=== PATIENT | female | born 1960 | race Caucasian/White ===

== ENCOUNTER → 2019-08-22 07:33 | Outpatient (CLI) | payer BC, SELFPAY ==
--- NOTE | ~2019-08-22 | MR_ITS ---
EXAMINATION: MR lumbar spine wo con DATE: 08/22/2019 08:12 INDICATION: Chronic low back pain. TECHNIQUE: Magnetic resonance imaging (MRI) of the lumbar spine was performed without intravenous con trast. Sequences included sagittal T2-weighted FSE, sagittal T2-weighted FS FSE, sagittal T1-weighted FSE, and axial T2-weighted FSE. COMPARISON: Lumbar spine radiographs 09/12/2016, CT abdomen and pelvis 06/10/2014 FINDINGS: There is 4 degrees levocurvature of lumbar spine. Vertebral body heights are normal. There is mildly decreased disc height at L3-L4 and moderately decreased disc height at L4-L5 and L5-S1. The distal spinal cord signal intensity is normal. The conus medullaris is at L1-L2. Again seen are noy pelvic cysts in the kidneys. The following disc levels are specifically discussed: L1-L2: The disc does not extend beyond the endplate margin. There is mild bilateral facet joint osteo arthritis. There is no neural foraminal stenosis. There is no central canal stenosis. L2-L3: The disc is bulging. There is mild bilateral facet joint osteoarthritis. There is mild left ne ural foraminal stenosis. There is mild central canal stenosis. L3-L4: The disc is bulging. There is moderate left facet joint osteoarthritis. There is mild bilatera l neural foraminal stenosis. There is mild central canal stenosis. L4-L5: The disc is bulging. There is moderate right and mild left facet joint osteoarthritis. There i s moderate right and mild left neural foraminal stenosis. There is mild central canal stenosis. L5-S1: The disc is bulging. There is mild right and severe left facet joint osteoarthritis. There is mild left neural foraminal stenosis. There is no central canal stenosis. IMPRESSION: 1. Moderate lumbar spondylosis. Reviewed, dictated and finalized at location A. TING TABLE HAND
== END ==
PROVIDERS: PCP Family Medicine; Visit Provider Nurse Practitioner Gerontology
DX: M47.896 Other spondylosis, lumbar region (principal)
CPT/HCPCS: 72148

== ENCOUNTER 2019-12-25 14:11 | Emergency (ER) | payer BC, SELFPAY ==
--- NOTE | ~2019-12-25 | XR_ITS ---
EXAMINATION: XR foot LT min 3V DATE: 12/25/2019 15:01 INDICATION: Bruising post injury to the left fourth and fifth toes TECHNIQUE: Dorsoplantar, two oblique and lateral views of the left foot and cone-down lateral view o f the left fifth toe were obtained. COMPARISON: None. FINDINGS: 1 mm plantar displacement and 30 degree dorsal/lateral angulation and an oblique extra-articular frac ture at the proximal diaphysis of the left fifth proximal phalanx. No other fractures identified. Mil d hallux valgus with bunion at the medial head of the first metatarsal. Mild osteoarthritis at the fi rst metatarsophalangeal joint. Remaining joint spaces appear relatively preserved. IMPRESSION: 1. Minimally displaced, moderate angulated extra articular fracture at the left fifth proximal phalan x. Reviewed, dictated and finalized at location A. IMPRESSION: 1. Minimally displaced, moderate angulated extra articular fracture at the left fifth proximal phalanx.
[2019-12-25 14:29] VITALS: BP 120/86; PULSE 96; RESP 16; TEMP 37.3; O2SAT 100
--- NOTE | 2019-12-25 14:55 | ED.GENADULT ---
HPI - General Adult General Chief complaint: Extremity Injury, Lower Stated complaint: Left toe injury Time Seen by Provider: 12/25/19 14:55 Source: patient and RN notes reviewed Mode of arrival: ambulatory Limitations: no limitations History of Present Illness HPI narrative: 59-year-old female presents with complaints of left 5th toe pain, bruising, and swelling for 2.5 hours. No treatment. Hannah says she hit her LT 4th and 5th toe on a large concrete block wall causing injury to toes. Hurts to bear weight. No radiation of pain. No numbness, tingling, or loss of mobility. Exacerbating factor applying weight. Denies inability to bear weight. Denies suspect foreign body. The patient reports she have not been diagnosed with COVID-19. The patient reports she is not waiting for the results of a COVID-19 lab test. The patient reports she do not have fever, chills, weakness, fatigue, myalgia, or facial swelling. The patient reports she do not have a new or worsening cough or shortness of breath. Denies chest pain. The patient reports she do not have any rhinorrhea, congestion, sore throat, nausea, vomiting, abdominal pain, and diarrhea. Tolerating po intake well. Denies recent traveling. Denies concerns for COVID-19 or exposures been home with limited outdoor exposure except for essential household needs, work, and return home. At this time, patient is not suspected of having COVID-19. Some parts of this dictation were generated by voice recognition software and may contain typographical and/or grammatical inaccuracies. Related Data Allergies Allergy/AdvReac Type Severity Reaction Status Date / Time tobramycin Allergy Unknown Eye Verified 12/08/19 15:45 irritation Review of Systems Review of Systems: Narrative: CONSTITUTIONAL: Denies fever, chills, sweats. EYES: Denies visual changes, redness, discharge. ENT: Denies rhinorrhea, congestion, sore throat, otalgia. CARDIOVASCULAR: Denies chest pain, palpitations, edema. RESPIRATORY: Denies dyspnea, wheezing, cough. GASTROINTESTINAL: Denies abdominal pain, nausea, vomiting, diarrhea. GENITOURINARY: Denies dysuria, hematuria, abnormal discharge. SKIN: Denies rash or itching. MUSCULOSKELETAL: Denies acute back pain or myalgia. Complains of pain, bruising, and swelling to left 5th toe. NEUROLOGIC: Denies numbness or focal weakness. PSYCHIATRIC: Denies anxiety or depression. All systems reviewed & are unremarkable except as noted in HPI and below. [facility] Past Medical History Medical History (Updated 12/26/19 @ 00:00 by Raquel Tobar) Hiatal hernia with gastroesophageal reflux disease and esophagitis Menopause VLADISLAV on CPAP Prediabetes Renal cyst Surgical History Surgical History (Updated 12/25/19 @ 15:12 by LENA Casiano) History of cholecystectomy Family History Family History Sibling Diabetes mellitus Mother Hypertension Family history of elevated blood lipids Family history of cardiovascular disease Cerebrovascular accident Father Patient's father is Family history of lung cancer Family history of lymphoma Grandparent Cerebrovascular accident Social History Social History (Updated 12/25/19 @ 15:13 by LENA Casiano) Smoking status: Never smoker Second hand tobacco smoke exposure: No Alcohol intake: never Substance use: never Living arrangements: with family Occupation/Education: occupation Gender identity (if verbalized by the patient): Female Comments At time of signature, agree with nurse past medical, surgical, social, and family history. There is no relevant family history pertinent to the presenting complaint. Exam Narrative: Exam Narrative: GENERAL: This is a well-nourished, well-developed patient, in no apparent distress. Ambulates with a limp favoring left lower extremity. HEAD: normocephalic, atraumatic. EYES: PERRL. Scler
== END 2019-12-25 15:20 | disposition home or self-care (01) ==
PROVIDERS: Emergency Provider Nurse Practitioner Family; PCP Family Medicine
DX: S92.512A Displaced fracture of proximal phalanx of left lesser toe(s), initial encounter for closed fracture (principal); R73.03 Prediabetes; G47.33 Obstructive sleep apnea (adult) (pediatric)
CPT/HCPCS: 73630; 99214; G0463

== ENCOUNTER 2020-03-31 14:43 | Outpatient (CLI) | payer BC, SELFPAY ==
--- NOTE | ~2020-03-31 | MM_ITS ---
EXAMINATION: MM screening linda BI w silvana HISTORY: Screening TECHNIQUE: Craniocaudal and mediolateral oblique 3-D tomosynthesis images were obtained and synthetic 2-D images were generated. CAD analysis was submitted and interpreted. COMPARISON: No prior mammogram is available for comparison at this institution. BREAST PARENCHYMAL COMPOSITION: The breasts are almost entirely fatty. FINDINGS: There is no evidence of suspicious mass, calcification, or architectural distortion to sugg est malignancy in either breast. There has been no suspicious interval change. IMPRESSION: 1. No mammographic evidence of malignancy. 2. Recommend routine screening mammography in one year. BI-RADS Category 1: Negative Reviewed, dictated and finalized at location A.
== END 2020-03-31 14:44 | disposition home or self-care (01) ==
PROVIDERS: PCP Family Medicine; Visit Provider Family Medicine
DX: Z12.31 Encounter for screening mammogram for malignant neoplasm of breast (principal)
CPT/HCPCS: 77063; 77067

== ENCOUNTER 2020-04-29 12:54 | Outpatient (CLI) | payer BC, SELFPAY ==
--- NOTE | ~2020-04-29 | DEXA_ITS ---
Bone Density Report Name: Hannah Cortez Age: 59 Sex: Female Ethnicity: White Date of : 1960 Indication: postmenopausal; parental hip fracture; Referring Provider: PHYSICIAN NOT ON STAFF Study: Bone densitometry was performed. Exam Date: April 29, 2020 Accession number: [id number] Bone Density: Region BMD T-score Z-score Classification AP Spine (L1-L4) 0.811 -2.1 -0.9 Osteopenia Femoral Neck (Left) 0.652 -1.8 -0.6 Osteopenia Total Hip (Left) 0.815 -1.0 -0.2 Normal Total Hip Bilateral Avg 0.823 -0.9 -0.2 Normal Femoral Neck (Right) 0.740 -1.0 0.2 Normal Total Hip (Right) 0.829 -0.9 -0.1 Normal World Health Organization criteria for BMD impression classify patients as: Normal (T-score at or above -1.0), Osteopenia (T-score between -1.0 and -2.5), or Osteoporosis (T-score at or below -2.5). 10-year Fracture Risk(1): Major Osteoporotic Fracture 14% Hip Fracture 0.7% Reported Risk Factors: [place] (), Neck BMD=0.652, BMI=39.5, parental fracture (1) FRAX(R) Version 3.08. Fracture probability calculated for an untreated patient. Fracture probability may be lower if the patient has received treatment. Clinical Information Provided by Patient: Parent has had a hip fracture Patient maximum height was 66 Menopause Age: 44 No regular weight bearing exercise Drinks caffeinated beverages Onset of menses at age 15 Number of children 1 Impression: The patient has low bone mass, based on the Total Spine T-score. The patient has an estimated ten-year risk of hip fracture of 0.7% and an estimated ten-year risk of major fracture of 14%, based on the WHO FRAX algorithm. The patient has risk factors, including: parental hip fracture. Discussion: BONE DENSITY IS LOW AT ONE OR MORE SKELETAL SITES. This patient's lowest T-score is low at one or more skeletal sites. It meets the World Health Organization's (WHO) criteria for ?low bone mass? (T-score between -1.0 and -2.5). The patient's 10-year risk of fracture as calculated by FRAX is less than the threshold where pharmacological therapy is recommended by the National Osteoporosis Foundation (NOF). However, all treatment decisions require clinical judgment and consideration of individual patient factors, including patient preferences, comorbidities, previous drug use, risk factors not captured in the FRAX model (e.g., frailty, falls, vitamin D deficiency, increased bone turnover, interval significant decline in bone density) and possible under or overestimation of fracture risk by FRAX. The patient should follow a healthful lifestyle (good nutrition with adequate calcium and vitamin D, and appropriate weight-bearing exercise). Follow-Up: Consider repeating this study in 2 to 3 years to reassess this patient's status, or sooner if there is some new clinical in
== END 2020-04-29 12:55 | disposition home or self-care (01) ==
LOC: ANHIMG 12:57
PROVIDERS: PCP Family Medicine
DX: Z13.820 Encounter for screening for osteoporosis (principal); M85.89 Other specified disorders of bone density and structure, multiple sites
CPT/HCPCS: 77080

== ENCOUNTER 2020-08-27 22:25 | Emergency (ER) | payer BC, SELFPAY ==
[2020-08-27 22:28] VITALS: BP 123/88; PULSE 107; RESP 18; TEMP 36.3; O2SAT 97
--- NOTE | 2020-08-27 23:19 | ED.EYEPROB ---
HPI - Eye Problem General Chief complaint: Eye Problems Stated complaint: eye complaint Time Seen by Provider: 08/27/20 22:48 History of Present Illness HPI Narrative: Patient is a 60-year-old female who presents ER with flashers out of the corner of her left eye. Symptoms began 2 weeks ago and would occur intermittently in the evening while taking her dog on a walk. She noticed it because she thought it was like flashing off of her glasses. About an hour prior to arrival she started having sudden increase in these flashes in the periphery of her left eye. Occurring greater than 10 times a minute. They have slowed down at this time. She thinks she can sometimes induce them when moving her eye. She does have history of having floaters in her vision but these seem different. No loss of vision or dark spots in her visual field. No blurred vision or double vision. No trauma to her eye. Related Data Allergies Allergy/AdvReac Type Severity Reaction Status Date / Time tobramycin Allergy Unknown Eye Verified 08/27/20 22:32 irritation Review of Systems Eyes: Eyes: Denies change in vision and Denies photophobia Comments: Increase in flashers in the left eye. No new floaters. No loss of vision. PMFSH Past Medical History Medical History (Updated 08/28/20 @ 00:17 by Elmer Grady MD) Hiatal hernia with gastroesophageal reflux disease and esophagitis Menopause VLADISLAV on CPAP Prediabetes Renal cyst Surgical History Surgical History (Updated 12/25/19 @ 15:12 by LENA Casiano) History of cholecystectomy Family History Family History Sibling Diabetes mellitus Mother Hypertension Family history of elevated blood lipids Family history of cardiovascular disease Cerebrovascular accident Father Patient's father is Family history of lung cancer Family history of lymphoma Grandparent Cerebrovascular accident Social History Social History (Updated 12/25/19 @ 15:13 by LENA Casiano) Smoking status: Never smoker Second hand tobacco smoke exposure: No Alcohol intake: never Substance use: never Gender identity (if verbalized by the patient): Female Exam Narrative: Exam Narrative: GENERAL: Well-appearing, well-nourished, and in no acute distress. HEAD: Normocephalic, atraumatic. EYES: PERRLA and EOMI. Normal-appearing lids. Left eye pressure of 15 mmHg. Visual acuity 20/20 in right eye and 20/30 in the left eye using her glasses. EXTREMITIES: Normal range of motion. No edema. NEURO: Alert and oriented x3. PSYCH: Normal mood and affect. Course Course Emergency Course: Discussed case with Dr. Wheeler with ophthalmology at [facility]. He will contact patient tomorrow to schedule follow-up for tomorrow or on Saturday. We have discussed return precautions with the patient. Patient will be given all contact information. Patient verbalized understanding the plan and has no additional concerns. Vital Signs Vital signs: Vital Signs Temperature 97.3 F L 08/27/20 22:28 Pulse Rate 107 H 08/27/20 22:28 Respiratory Rate 18 08/27/20 22:28 Blood Pressure 123/88 08/27/20 22:28 Pulse Oximetry 97 08/27/20 22:28 Temperature 97.3 F L 08/27/20 22:28 Pulse Rate 107 H 08/27/20 22:28 Respiratory Rate 18 08/27/20 22:28 Blood Pressure 123/88 08/27/20 22:28 Pulse Oximetry 97 08/27/20 22:28 Discharge Plan Discharge Clinical Impression: Alteration in vision Patient Disposition: Home, Self-Care Condition: Stable Instructions: Visual Floaters (ED) Additional Instructions: The flashers you are experiencing may be related to a posterior vitreous detachment but also potentially a retinal detachment. The ophthalmology team at [facility] has been contacted and we spoke with Dr. Wheeler. He would like you to follow-up either tomorrow or on Saturday and will be contactin
[2020-08-28 00:29] VITALS: BP 134/86; PULSE 82; RESP 16; TEMP 36.3; O2SAT 97
== END 2020-08-28 00:30 | disposition home or self-care (01) ==
PROVIDERS: Emergency Provider Emergency Medicine; PCP Family Medicine
DX: H53.8 Other visual disturbances (principal); G47.33 Obstructive sleep apnea (adult) (pediatric); R73.03 Prediabetes
CPT/HCPCS: 99282

== ENCOUNTER 2021-04-04 09:54 | Outpatient (CLI) | payer BC, SELFPAY ==
--- NOTE | ~2021-04-04 | MM_ITS ---
EXAMINATION: MM screening linda BI w silvana HISTORY: Screening TECHNIQUE: Craniocaudal and mediolateral oblique 3-D tomosynthesis images were obtained and synthetic 2-D images were generated. CAD analysis was submitted and interpreted. COMPARISON: 03/31/2020 BREAST PARENCHYMAL COMPOSITION: There are scattered areas of fibroglandular density. FINDINGS: There is no evidence of suspicious mass, calcification, or architectural distortion to sugg est malignancy in either breast. There has been no suspicious interval change. IMPRESSION: 1. No mammographic evidence of malignancy. 2. Recommend routine screening mammography in one year. BI-RADS Category 1: Negative Reviewed, dictated and finalized at location A.
== END 2021-04-04 09:55 | disposition home or self-care (01) ==
PROVIDERS: PCP Family Medicine
DX: Z12.31 Encounter for screening mammogram for malignant neoplasm of breast (principal)
CPT/HCPCS: 77063; 77067

== ENCOUNTER 2021-10-05 00:49 | Day surgery (SDC) | payer BC, SELFPAY ==
[2021-10-04 13:32] VITALS: BMI 32.0
[2021-10-05] VITALS (8 sets, daily range): BP systolic 122–138; BP diastolic 62–83; PULSE 64–84; RESP 12–22; TEMP 36.7; O2SAT 99–100; BMI 32.4
[2021-10-05 07:52] LABS: Basophils Absolute Auto 0.1 K/mm3 (0.0-0.1); Eosinophils Absolute Auto 0.2 K/mm3 (0-0.3); Eosinophils Percent Auto 3.1 % (0-4.4); Hematocrit 42.9 % (37.0-47.0); Hemoglobin 13.6 g/dL (12.0-15.0); Immature Granulocyte Absolute 0.02 K/mm3 (0.00-0.031); Immature Granulocyte Percent A 0.3 % (0-0.5); Lymphocytes Percent Auto 32.4 % (18.3-44.2); Mean Corpuscular HGB Conc 31.7 g/dl (32-36); Mean Corpuscular Hemoglobin 29.1 pg (26-34); Mean Corpuscular Volume 91.7 fl (80-100); Mean Platelet Volume 11.2 fl (7.4-10.4); Monocytes Absolute Auto 0.4 K/mm3 (0.1-0.6); Monocytes Percent Auto 5.2 % (2.6-8.5); Neutrophils Absolute Auto 3.9 K/mm3 (1.3-6.7); Platelet Count Result 238 k/mm3 (150-375); Red Blood Count 4.68 M/mm3 (4.2-5.4); Red Cell Distribution Width 14.2 % (11.5-14.5); White Blood Count 6.8 K/mm3 (4.5-10.0)
[2021-10-05 08:03] LABS: INR 1.1; Prothrombin Time 13.6 Seconds (11.1-14.7)
[2021-10-05 08:19] LABS: Anion Gap 5 mmol/L (8-16); Blood Urea Nitrogen 21 mg/dL (7-17); Carbon Dioxide 30 mmol/L (22-30); Chloride 106 mmol/L (98-107); Estimated CRCL calculation 67 ml/min; Estimated Glomerular Filt Rate > 60; Glucose 107 mg/dL (65-110); Potassium 3.6 mmol/L (3.4-5.0); Sodium 141 mmol/L (137-145)
--- NOTE | 2021-10-05 09:57 | WPDHPUPDATE1 ---
History and Physical Update Update Date/Time: 10/05/21 09:57 History and Physical has been reviewed, including an updated exam of the patient. There are NO changes in the patient's condition. Risks, benefits, and alternatives have been discussed and questions answered. Patient agrees to proceed with procedure.
--- NOTE | 2021-10-05 09:57 | WPDMODSED ---
Moderate Sedation Note-Pt Data Patient Data Allergies Allergy/AdvReac Type Severity Reaction Status Date / Time tobramycin Allergy Unknown Eye Verified 10/05/21 07:42 irritation Home Medications Medication Instructions Recorded Confirmed Type ergocalciferol (vitamin D2) 1,250 See Rx Instructions .ROUTE 12/05/20 10/04/21 Rx mcg (50,000 unit) capsule .COMPLEX #14 cap topiramate 25 mg tablet See Rx Instructions .ROUTE 01/09/21 10/04/21 Rx .COMPLEX #60 tablet pantoprazole 40 mg tablet,delayed 40 mg PO QAM 360 Days #360 tablet 05/23/21 10/04/21 Rx release phentermine 37.5 mg tablet 37.5 mg PO DAILY #30 tablet 09/07/21 10/04/21 Rx nitroglycerin 0.4 mg sublingual 0.4 mg SUBLINGUAL Q5M PRN #20 09/15/21 10/04/21 Rx tablet tablet aspirin 325 mg PO DAILY 10/04/21 10/04/21 History minocycline 100 mg PO DAILY PRN 10/04/21 10/04/21 History oxymetazoline [Afrin 2 spray INTRANASAL Q12H PRN 10/04/21 10/04/21 History (oxymetazoline)] Current Medications: Active Medications Sodium Chloride (Normal Saline Iv) 500 mls @ 100 mls/hr IV CONT .Q5H BO Sedation/Anesthesia: No previous sedation/anesthesia problems (including family history). [facility] Past Medical History Medical History Hiatal hernia with gastroesophageal reflux disease and esophagitis Menopause VLADISLAV on CPAP Prediabetes Renal cyst Surgical History Surgical History History of cholecystectomy Family History Family History Sibling Diabetes mellitus Mother Hypertension Family history of elevated blood lipids Family history of cardiovascular disease Cerebrovascular accident Father Patient's father is Family history of lung cancer Family history of lymphoma Grandparent Cerebrovascular accident Social History Social History Smoking status: Never smoker Second hand tobacco smoke exposure: Yes (as a child lived with a smoker, limited exposure as adult) Alcohol intake: never Substance use: never Living arrangements: with family Additional living arrangements comments: lives with spouse Gender identity (if verbalized by the patient): Female Spiritual care concerns: No Mod Sed Physical Exam Physical Exam Pre Procedural Exam: Normal: Appearance, Eyes, Ears, Nose, Neck, Throat, Airway, Lungs, Heart Size, Heart Rate, Heart Rhythm, Neuro Exam, Abdomen, Liver, Kidneys, Spleen, Breasts, Genitalia, Extremities and Skin Hours since solid foods: 8 Hours since liquid intake: 8 Mallampati Classification: class 1 Internal Medicine - PN: Obj Da Vital Signs Vital Signs: Vital Signs - 24 hr 10/05/21 07:53 Temperature 36.7 C Pulse Rate 82 Respiratory Rate 22 H Blood Pressure 138/77 Pulse Oximetry 100 Meds/Results Medications: Active Medications Generic Name Dose Route Start Last Admin Trade Name Freq PRN Reason Stop Dose Admin Sodium Chloride 500 mls @ 100 mls/hr 10/05/21 07:30 Normal Saline Iv IV CONT .Q5H BO Labs CBC & Chem 7: 10/05/21 07:46 10/05/21 07:46 Labs: Laboratory Results - last 24 hr 10/05/21 10/05/21 10/05/21 07:46 07:46 07:46 WBC 6.8 RBC 4.68 Hgb 13.6 Hct 42.9 MCV 91.7 MCH 29.1 MCHC 31.7 L RDW 14.2 Plt Count 238 MPV 11.2 H Immature Gran % (Auto) 0.3 Neut % (Auto) 58.0 Lymph % (Auto) 32.4 [place] % (Auto) 5.2 Eos % (Auto) 3.1 Baso % (Auto) 1.0 Lymph # (Auto) 2.20 [place] # (Auto) 0.4 Eos # (Auto) 0.2 Baso # (Auto) 0.1 Abs Immat Gran (auto) 0.02 Absolute Neuts (auto) 3.9 Absolute Nucleated RBC 0.0 Nucleated RBC % 0.0 PT 13.6 INR 1.1 Sodium 141 Potassium 3.6 Chloride 106 Carbon Dioxide 30 Anion Gap 5 L BUN 21 H C
--- NOTE | 2021-10-05 09:58 | P.PCNCC_ITS ---
Cardiac Cath Procedure Note Date of procedure:: 10/05/21 Performing physician:: Sundeep Fulton MD Date of service 10/05/2021 Indication:: chest pain abnormal stress test Brief clinical history:: this is 61-year-old female with past history of strong family history for CAD who presents here for evaluation for chest pain. She had a stress test which was exercise echocardiogram that shows dilatation of the left ventricle after exertion. Procedure Procedure performed:: 1-Moderate sedation that started at 9:23 a.m. and ended at 9:51 a.m. with total duration 28 minutes using 3mg of Versed [id number] fentanyl. The registered nurse was nemesio travis. 2-Selective left and right coronary angiogram. 3-Left heart catheterization with measurement of LVEDP and measurement of gradient across aortic valve. 4-Right common femoral arterial angiogram. 5-Deployment of 6 Austrian Angio-Seal. Sedation/Medication given:: Moderate sedation. Access site:: Right common femoral artery. Estimated blood loss:: 10cc Procedure note:: After informed consent patient was brought in to process laboratory specialist with the was draped and prepped in usual manner. Moderate sedation was given and the right groin was infiltrated using 1% lidocaine. Five Austrian sheath was obtained using micropuncture needle and the modified Seldinger technique. Selective left coronary angiogram was done using JL4 catheter with the tip of the catheter placed in the left main coronary artery. Selective right coronary angiogram was done using JR4 catheter with the tip of the catheter placed to the right coronary artery. After that 5 Austrian pigtail catheter was advanced across the aortic valve into the left ventricle with measurement of LVEDP and measurement of gradient across aortic valve. Right common femoral arterial angiogram was done. Findings:: 1- left coronary artery is a large artery that divides into large LAD, large circumflex artery. Left main is free of disease. 2- left anterior descending artery is a large artery that runs and wraps around the apex. It has aneurysmal segment proximally. In the mid segment there is about 40-50%. Diagonal branch comes off the aneurysm segment has ostial 50%. 3- leftcircumflex artery is a large artery. Right after takes off from the left main there is a large OM1 branch that looks unremarkable. Left circumflex artery after that there is focal area about 30%. Then immediately after that area there is large OM2 that has minimal irregularities. 4- right coronary artery is Large artery and dominant with minimal irregularities. 5- LVEDP was 10 mm Hg and no gradient across aortic valve. 6- opening arterial pressure was 140/80 and closing pressure was 110/70 7- right femoral artery angiogram shows no significant disease in the right common femoral artery. Conclusion:: - Nonocclusive CAD as described above. Assessment and Plan Additional Plan - patient will need aggressive risk factor modification for CAD.
--- NOTE | 2021-10-05 10:10 | SUR.PHASEII ---
1006. pt arrived to [facility] c/o chest discomfort & rates 08/03, pt states discomfort could be from taking medication on empty stomach. This rn called & notified Dr Fulton. Order received for EKG & ok to give mylanta
--- NOTE | 2021-10-05 10:11 | ECG_ITS ---
Measurements Intervals Mcclellan Rate: 66 P: 178 RI: 146 QRS: 174 QRSD: 84 T: 183 QT: 401 QTc: 421 Interpretive Statements ECTOPIC ATRIAL RHYTHM PROBABLE LIMB LEAD REVERSAL ABNORMAL ECG NO PREVIOUS ECG AVAILABLE FOR COMPARISON Electronically Signed On 10-05-2021 16:57:32 CDT by Clayton De León M.D.
[2021-10-05] MEDS: MAG HYDROX/AL HYDROX/SIMETH 30 ML UDC PO (10:18)
--- NOTE | 2021-10-05 12:48 | SUR.PHASEII ---
iv d/c tip intact. patient transferred via w[facility] to personal vehicle. jay simmons at d/c time. i forgot to give the patient her angioseal pamplet. will send to her
== END 2021-10-05 12:49 | disposition home or self-care (01) ==
PROVIDERS: PCP Family Medicine; Visit Provider Internal Medicine Cardiovascular Disease
PROC: 4A023N7 Measurement of Cardiac Sampling and Pressure, Left Heart, Percutaneous Approach (ICD-10-PCS; CPT 93452; principal; 2021-10-05 09:00)
DX: I25.10 Atherosclerotic heart disease of native coronary artery without angina pectoris (principal); R94.39 Abnormal result of other cardiovascular function study; R07.9 Chest pain, unspecified; G47.33 Obstructive sleep apnea (adult) (pediatric); R73.03 Prediabetes; K44.9 Diaphragmatic hernia without obstruction or gangrene; K21.00 Gastro-esophageal reflux disease with esophagitis, without bleeding; Z82.49 Family history of ischemic heart disease and other diseases of the circulatory system
CPT/HCPCS: 36415; 80048; 85025; 85610; 93005; 93458; A9270; C1887; C1894; G0269; J1644; J2250; J3010

== ENCOUNTER 2021-11-03 08:51 | Outpatient (CLI) | payer BC, SELFPAY ==
--- NOTE | ~2021-11-03 | US_ITS ---
EXAMINATION: US aorta DATE: 11/03/2021 09:41 INDICATION: Abdominal aortic aneurysm screening with family history of abdominal aortic aneurysm TECHNIQUE: Grayscale, color Doppler, and pulsed Doppler images of the aorta and common iliac arteries were obtained. COMPARISON: None. FINDINGS: The proximal aorta measures 2.1 cm. The mid aorta measures 1.8 cm. The distal aorta measures 1.9 cm. The right common iliac artery measures 1.2 cm. The left common iliac artery measures 1.2 cm. IMPRESSION: 1. Normal caliber abdominal aorta. Reviewed, dictated and finalized at location A.
== END 2021-11-03 08:52 | disposition home or self-care (01) ==
PROVIDERS: PCP Family Medicine; Visit Provider Nurse Practitioner Adult Health
DX: I25.41 Coronary artery aneurysm (principal); Z82.49 Family history of ischemic heart disease and other diseases of the circulatory system
CPT/HCPCS: 76775

== ENCOUNTER → 2022-05-14 13:44 | Outpatient (CLI) | payer BC, SELFPAY ==
--- NOTE | ~2022-05-14 | MR_ITS ---
EXAMINATION: MR brain/brain stem wo con DATE: 05/14/2022 14:15 INDICATION: Other amnesia. TECHNIQUE: Magnetic resonance imaging (MRI) of the brain and brainstem was performed without intraven ous contrast. COMPARISON: Brain MRI 11/09/2003 FINDINGS: There are scattered areas of nonspecific increased T2-weighted signal intensity in the cere bral white matter, which is within normal limits for the patient's age. There is no intracranial hemo rrhage, acute infarction, or abnormal intracranial mass lesion. The ventricles are normal in size. Th ere is a mucous retention cyst in left maxillary sinus. The mastoid air cells are normal. The orbits are normal. IMPRESSION: 1. Normal aging brain. Reviewed, dictated and finalized at location A. IZER HELPER IMPRESSION: 1. Normal aging brain.
== END ==
PROVIDERS: PCP Family Medicine; Visit Provider Family Medicine
DX: R41.3 Other amnesia (principal)
CPT/HCPCS: 70551

== ENCOUNTER 2022-06-20 14:18 | Outpatient (CLI) | payer BC, SELFPAY ==
--- NOTE | ~2022-06-20 | MM_ITS ---
EXAMINATION: MM screening [facility] w sil[facility]ana HISTORY: Screening mammogram TECHNIQUE: Craniocaudal and mediolateral oblique 3-D tomosynthesis images were obtained and synthetic 2-D images were generated. CAD analysis was submitted and interpreted. COMPARISON: 03/2021, 03/31/2020 bilateral screening mammogram examinations BREAST PARENCHYMAL COMPOSITION: The breasts are almost entirely fatty. FINDINGS: There is no evidence of suspicious mass, calcification, or architectural distortion to sugg est malignancy in either breast. There has been no suspicious interval change. IMPRESSION: 1. No mammographic evidence of malignancy. 2. Recommend routine screening mammography in one year. BI-RADS Category 1: Negative Reviewed, dictated and finalized at location A. H CUTTER
== END 2022-06-20 14:19 | disposition home or self-care (01) ==
LOC: ANHIMG 14:20
PROVIDERS: PCP Family Medicine
DX: Z12.31 Encounter for screening mammogram for malignant neoplasm of breast (principal)
CPT/HCPCS: 77063; 77067

== ENCOUNTER 2022-07-02 11:09 | Emergency (ER) | payer BC, SELFPAY ==
[2022-07-02] VITALS (7 sets, daily range): BP systolic 98–136; BP diastolic 58–89; PULSE 67–84; RESP 14–18; TEMP 36.4; O2SAT 99–100
--- NOTE | ~2022-07-02 | CT_ITS ---
EXAMINATION: CTA chest PE protocol DATE: 07/02/2022 14:53 INDICATION: Left-sided pleuritic chest pain TECHNIQUE: Computed tomography angiography (CTA) of the chest was performed with 100 mL Omnipaque-350 intravenous contrast timed to evaluate the pulmonary arteries. Coronal maximum intensity projection 3D-reconstructions were created by the technologist. The dose-length product (DLP) was 782.33 mGy-cm. Automated exposure control and iterative reconstruction technique were employed. COMPARISON: 11/27/2018 FINDINGS: The pulmonary arteries are well-opacified. No pulmonary embolism is identified. There is de pendent atelectasis. No pleural effusion or pneumothorax. No pathologically enlarged thoracic lymph n odes are identified. The heart size is normal. There are multiple cysts of the left hepatic lobe. The gallbladder is surgically absent. Peripelvic cysts are noted in the left kidney. There is mild thora cic spondylosis. IMPRESSION: 1. No pulmonary embolism. 2. Mild atelectasis. Reviewed, dictated and finalized at location B. OR ENERGY MARKET COORDINATOR
--- NOTE | ~2022-07-02 | XR_ITS ---
EXAMINATION: XR chest 2V DATE: 07/02/2022 11:43 INDICATION: Left-sided chest pain TECHNIQUE: PA and lateral views of the chest are obtained. COMPARISON: 12/30/2017 FINDINGS: The lungs are free of acute opacities. No pleural effusion or pneumothorax. The cardiomedia stinal silhouette is normal. There is mild thoracic spondylosis. Surgical clips in the right upper qu adrant are likely from prior cholecystectomy. IMPRESSION: 1. No acute cardiopulmonary abnormality. Reviewed, dictated and finalized at location B. LSMITH
--- NOTE | 2022-07-02 11:21 | ECG_ITS ---
Measurements Intervals [place] Rate: 76 P: 30 NM: 145 QRS: 18 QRSD: 83 T: 11 QT: 354 QTc: 399 Interpretive Statements SINUS RHYTHM LOW QRS VOLTAGE IN PRECORDIAL LEADS VOLTAGE CRITERIA FOR LVH MINIMAL Q WAVE- HIGH LATERAL LEADS BORDERLINE ECG COMPARED TO ECG 10/05/2021 10:21:32 NO SIGNIFICANT CHANGES Electronically Signed On 07-02-2022 12:00:32 APPLICATIONS SYSTEM ANALYST by Caesar Vasques D.O.
[2022-07-02 11:37] LABS: Basophils Absolute Auto 0.1 K/mm3 (0.0-0.1); Eosinophils Absolute Auto 0.3 K/mm3 (0-0.3); Eosinophils Percent Auto 5.4 % (0-4.4); Hematocrit 41.2 % (37.0-47.0); Hemoglobin 12.9 g/dL (12.0-15.0); Immature Granulocyte Absolute 0.02 K/mm3 (0.00-0.031); Immature Granulocyte Percent A 0.3 % (0-0.5); Lymphocytes Absolute Auto 2.29 K/mm3 (0.9-3.2); Lymphocytes Percent Auto 38.3 % (18.3-44.2); Mean Corpuscular HGB Conc 31.3 g/dl (32-36); Mean Corpuscular Hemoglobin 29.1 pg (26-34); Monocytes Absolute Auto 0.3 K/mm3 (0.1-0.6); Platelet Count Result 230 k/mm3 (150-375); Red Blood Count 4.43 M/mm3 (4.2-5.4); Red Cell Distribution Width 13.9 % (11.5-14.5)
[2022-07-02 11:51] LABS: INR 1.1; Prothrombin Time 13.3 Seconds (11.1-14.7)
[2022-07-02 11:52] LABS: Alanine Aminotransferase 26 U/L (6-35); Albumin Level 4.4 g/dL (3.5-5.1); Alkaline Phosphatase 85 U/L (38-126); Anion Gap 3 mmol/L (8-16); Aspartate Amino Transferase 29 U/L (14-36); Bilirubin,Total 0.7 mg/dL (0.2-1.3); Blood Urea Nitrogen 27 mg/dL (7-17); Calcium 9.2 mg/dL (8.4-10.2); Carbon Dioxide 31 mmol/L (22-30); Chloride 104 mmol/L (98-107); Estimated Glomerular Filt Rate > 60; Glucose 109 mg/dL (65-110); Lipase 120 U/L (23-300); Partial Thromboplastin Time 27.5 SECONDS (22.3-36.8); Potassium 4.3 mmol/L (3.4-5.0); Sodium 138 mmol/L (137-145)
[2022-07-02 12:03] LABS: Troponin I < 0.012 ng/mL (0.000-0.034)
--- NOTE | 2022-07-02 12:31 | ED.CHESTPAIN ---
HPI - Chest Pain General Chief Complaint: Chest Pain Stated Complaint: left chest pain radiates to shoulder Time Seen by Provider: 07/02/22 12:00 History of Present Illness HPI narrative: Patient is a 61-year-old female with a history of hyperlipidemia, CAD presenting with chest pain. Patient states that for the last year she has had intermittent left-sided chest pain for which she has been following with cardiology. She had a catheterization last summer which revealed nonocclusive CAD. Over the last several days, she states that she has had persistent left-sided chest pain associated with some exertional dyspnea. States that taking a deep breath worsens the pain. Denies leg swelling but states that she has gained 18 to 20 pounds in the last 3 months unintentionally. She denies recent fevers or chills, cough, lightheadedness, numbness or weakness, abdominal pain, nausea or vomiting, diarrhea. Related Data Home Medications Medication Instructions Recorded Confirmed minocycline 100 mg tablet 100 mg PO DAILY PRN adult acne 10/04/21 05/01/22 oxymetazoline 0.05 % nasal spray 2 spray intranasal Q12H PRN Nasal 10/04/21 05/01/22 (Afrin (oxymetazoline)) Congestion aspirin 81 mg tablet 81 mg PO DAILY 05/01/22 05/01/22 Allergies Allergy/AdvReac Type Severity Reaction Status Date / Time tobramycin Allergy Unknown Eye Verified 07/02/22 15:23 irritation Review of Systems Review of Systems: All systems reviewed & are unremarkable except as noted in HPI and below PMFSH Past Medical History Medical History Hiatal hernia with gastroesophageal reflux disease and esophagitis Menopause VLADISLAV on CPAP Prediabetes Renal cyst Surgical History Surgical History History of cholecystectomy Family History Family History Sibling Diabetes mellitus Mother Hypertension Family history of elevated blood lipids Family history of cardiovascular disease Cerebrovascular accident Father Patient's father is Family history of lung cancer Family history of lymphoma Grandparent Cerebrovascular accident Social History Social History Smoking status: Never smoker Second hand tobacco smoke exposure: Yes (as a child lived with a smoker, limited exposure as adult) Alcohol intake: never Substance use: never Additional living arrangements comments: lives with spouse Gender identity (if verbalized by the patient): Female Spiritual care concerns: No Exam Narrative: GENERAL: Well-appearing, well-nourished, and in no acute distress. HEAD: Normocephalic, atraumatic. EYES: PERRLA and EOMI. ENT: Nares clear, no rhinorrhea or epistaxis. Mucous membranes moist. NECK: Supple. CHEST: Clear to auscultation. No respiratory distress. Left lateral lower chest wall with focal tenderness HEART: Regular rate and rhythm. No murmur heard. Normal peripheral pulses. ABDOMEN: Soft, nontender, nondistended, normal active bowel sounds. EXTREMITIES: Normal range of motion. No edema. SKIN: Warm, dry, no rash. NEURO: No focal deficits. Alert and oriented x3. PSYCH: Normal mood and affect. Course Vital Signs Vital signs: Vital Signs Temperature 97.6 F 07/02/22 11:50 Pulse Rate 77 07/02/22 11:50 Respiratory Rate 14 07/02/22 11:50 Blood Pressure 136/85 07/02/22 11:50 Pulse Oximetry 100 07/02/22 11:50 Oxygen Delivery Room Air 07/02/22 11:50 Temperature 97.6 F 07/02/22 11:50 Pulse Rate 80 07/02/22 17:00 Respiratory Rate 18 07/02/22 17:00 Blood Pressure 98/58 L 07/02/22 17:00 Pulse Oximetry 99 07/02/22 17:00 Oxygen Delivery Room Air 07/02/22 15:22 MDM - Chest Pain MDM Narrative Medical decision making narrative: Patient is a 61-year-old female presenting wi
[2022-07-02 13:25] LABS: NT Pro B Type Natriuretic Pept 78 pg/mL (5-100)
[2022-07-02 14:44] LABS: Troponin I < 0.012 ng/mL (0.000-0.034)
== END 2022-07-02 17:02 | disposition home or self-care (01) ==
PROVIDERS: Emergency Medicine; Emergency Provider Emergency Medicine; PCP Family Medicine
DX: R07.89 Other chest pain (principal); I25.10 Atherosclerotic heart disease of native coronary artery without angina pectoris; E78.5 Hyperlipidemia, unspecified; K21.00 Gastro-esophageal reflux disease with esophagitis, without bleeding; K44.9 Diaphragmatic hernia without obstruction or gangrene; G47.33 Obstructive sleep apnea (adult) (pediatric); R73.03 Prediabetes; Z77.22 Contact with and (suspected) exposure to environmental tobacco smoke (acute) (chronic); Z79.82 Long term (current) use of aspirin; R94.31 Abnormal electrocardiogram [ECG] [EKG]
CPT/HCPCS: 36415; 71046; 71275; 80053; 83690; 83880; 84484; 85025; 85610; 85730; 93005; 99284; Q9967

== ENCOUNTER 2022-09-21 11:46 | Emergency (ER) | payer BC, SELFPAY ==
--- NOTE | ~2022-09-21 | XR_ITS ---
XR toe 2nd LT min 2V DATE: 09/21/2022 12:23 INDICATION: Left second toe injury, pain TECHNIQUE: 4 views COMPARISON: None FINDINGS: No fracture or dislocation, periosteal reaction or bone destruction of the second toe. No r adiopaque soft tissue foreign body or subcutaneous emphysema. There is hallux valgus and bunion deformity and mild osteoarthritis at the first metatarsophalangeal joint IMPRESSION: No fracture or dislocation of second digit Reviewed, dictated and finalized at location B.
[2022-09-21 11:59] VITALS: BP 110/73; PULSE 84; RESP 16; TEMP 36.6; O2SAT 99
--- NOTE | 2022-09-21 12:24 | ED.GENADULT ---
HPI - General Adult General Chief complaint: Extremity Injury, Lower Stated complaint: INJURED TOE Time Seen by Provider: 09/21/22 12:20 Source: patient, RN notes reviewed and old records reviewed Mode of arrival: ambulatory Limitations: no limitations History of Present Illness HPI narrative: 62-year-old female who presents to [facility] with 10 day duration of pain to her left 2nd toe at distal aspect. Patient reports that she stubbed her toe going up a step 10 days ago and has never had any swelling or bruising to her toe, pain only when she is barefoot and walking with a burning type of pain. Patient reports that she does not have pain to toe when she is wearing shoes. Patient states that she has not applied any ice , stated she rolo taped and took Aleve and Tylenol,states she takes Diclofenac daily. MD complaint: pain to distal 2nd left toe Onset (ago): day(s) (10) Treatments prior to arrival: NSAID and other (Tylenol and rolo taped) Related Data Home Medications Medication Instructions Recorded Confirmed minocycline 100 mg tablet 100 mg PO DAILY PRN adult acne 10/04/21 09/21/22 oxymetazoline 0.05 % nasal spray 2 spray intranasal Q12H PRN Nasal 10/04/21 09/21/22 (Afrin (oxymetazoline)) Congestion aspirin 81 mg tablet 81 mg PO DAILY 05/01/22 09/21/22 diclofenac sodium 75 mg 75 ea PO BID 07/18/22 09/21/22 tablet,delayed release Allergies Allergy/AdvReac Type Severity Reaction Status Date / Time tobramycin Allergy Unknown Eye Verified 09/21/22 11:55 irritation Review of Systems Review of Systems: CONSTITUTIONAL: Denies fever, chills, or sweats. EYES: Denies visual changes, redness, or discharge. ENT: Denies rhinorrhea, congestion, sore throat, or otalgia. CARDIOVASCULAR: Denies chest pain, palpitations, or edema. RESPIRATORY: Denies cough or dyspnea. GASTROINTESTINAL: Denies abdominal pain, nausea, vomiting, or diarrhea. GENITOURINARY: Denies dysuria or hematuria. SKIN: Denies rash or itching. MUSCULOSKELETAL: Denies back pain,positive for pain to left 2nd toe distal aspect, or myalgia. NEUROLOGIC: Denies headache, numbness, or weakness. PSYCHIATRIC: Denies anxiety or depression. All systems reviewed & are unremarkable except as noted in HPI and below PMFSH Past Medical History Medical History Hiatal hernia with gastroesophageal reflux disease and esophagitis Menopause VLADISLAV on CPAP Prediabetes Renal cyst Surgical History Surgical History History of cholecystectomy Family History Family History Sibling Diabetes mellitus Mother Hypertension Family history of elevated blood lipids Family history of cardiovascular disease Cerebrovascular accident Father Patient's father is Family history of lung cancer Family history of lymphoma Grandparent Cerebrovascular accident Social History Social History Smoking status: Never smoker Second hand tobacco smoke exposure: Yes (as a child lived with a smoker, limited exposure as adult) Alcohol intake: never Substance use: never Lack of Transportation: No Lack of Food: Never True Current Housing: I Have Housing Concerned About Future Housing: No Difficulty Paying Gas/Electric Bills: No Difficulty Paying for Meds: No Currently Unemployed: No Education: Decline to Answer Difficulty w/ Childcare or Family Care: No Living arrangements: with family Additional living arrangements comments: lives with spouse Occupation/Education: occupation Gender identity (if verbalized by the patient): Female Spiritual care concerns: No Comments At time of signature, agree with nursing past medical, surgical, social and family history. There is no relevant family history pertinent to the presenting compla
== END 2022-09-21 13:01 | disposition home or self-care (01) ==
PROVIDERS: Emergency Provider Registered Nurse; PCP Family Medicine
DX: S90.122A Contusion of left lesser toe(s) without damage to nail, initial encounter (principal); W22.09XA Striking against other stationary object, initial encounter; G47.33 Obstructive sleep apnea (adult) (pediatric); R73.03 Prediabetes; K21.00 Gastro-esophageal reflux disease with esophagitis, without bleeding; Z79.82 Long term (current) use of aspirin
CPT/HCPCS: 73660; 99213; G0463

== ENCOUNTER 2023-04-05 01:46 | Day surgery (SDC) | payer BC, SELFPAY ==
[2023-03-26 11:27] VITALS: BMI 36.3
[2023-04-05 06:45] VITALS: BP 137/75; PULSE 83; RESP 18; TEMP 36.1; O2SAT 100
[2023-04-05] MEDS: LACTATED RINGERS 1,000 ML 150 ML IV CONT (06:58)
[2023-04-05 07:01] LABS: Glucose Point of Care 101 mg/dl (65-105)
--- NOTE | 2023-04-05 07:24 | PM.HPGS ---
History of Present Illness History of Present Illness Consent: Risks, benefits, and alternatives have been discussed and questions answered. Patient agrees to proceed with procedure. Chief complaint: neoplasm screening Narrative: Hannah Cortez is a 62 year old female Presents for screening colonoscopy. Patient's current weight appetite and bowel movements are normal. She denies abdominal pain. She has had no bleeding. Family history noncontributory. Patient reports previous colonoscopy 10 years ago. Patient presents today for neoplasia screening. Review of Systems Review of Systems: Review of systems noncontributory. [facility] Past Medical History Medical History Chest pain Chest wall pain Conjunctivitis Hiatal hernia with gastroesophageal reflux disease and esophagitis Hx of pancreatitis after cholecystectomy for retained stones Recurrent dislocation of shoulder Renal cyst Surgical History Surgical History History of cholecystectomy Family History Family History Sibling Diabetes mellitus Mother Hypertension Family history of elevated blood lipids Family history of cardiovascular disease Cerebrovascular accident Father Patient's father is Family history of lung cancer Family history of lymphoma Grandparent Cerebrovascular accident Social History Social History (Updated 02/13/23 @ 12:22 by Heidi Candelario [facility]) Smoking status: Never smoker Second hand tobacco smoke exposure: Yes (as a child lived with a smoker, limited exposure as adult) Additional smoking assessment comments: exposed as a child Alcohol intake: never Substance use: never Lack of Transportation: No Lack of Food: Never True Current Housing: I Have Housing Concerned About Future Housing: No Difficulty Paying Gas/Electric Bills: No Difficulty Paying for Meds: No Currently Unemployed: No Education: Decline to Answer Difficulty w/ Childcare or Family Care: No Living arrangements: with family Additional living arrangements comments: lives with spouse Occupation/Education: occupation 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 Gender identity (if verbalized by the patient): Female Spiritual care concerns: No Meds Home Medications and Allergies Home Medications Medication Instructions Recorded Confirmed Type nitroglycerin 0.4 mg sublingual 0.4 mg sublingual Q5M PRN chest 09/15/21 03/26/23 Rx tablet pain #20 tabs minocycline 100 mg tablet 100 mg PO DAILY PRN adult acne 10/04/21 03/26/23 History oxymetazoline 0.05 % nasal spray 2 spray intranasal Q12H PRN Nasal 10/04/21 03/26/23 History (Afrin (oxymetazoline)) Congestion atorvastatin 20 mg tablet (Lipitor) 20 mg PO DAILY #30 tabs 10/05/21 03/26/23 Rx aspirin 81 mg tablet 81 mg PO DAILY 05/01/22 03/26/23 History diclofenac sodium 75 mg 75 ea PO BID 07/18/22 03/26/23 History tablet,delayed release pantoprazole 40 mg tablet,delayed See Rx Instructions .Route 01/16/23 03/26/23 Rx release .COMPLEX #90 tabs metformin 500 mg tablet 500 mg PO BID #180 tabs 01/17/23 03/26/23 Rx ergocalciferol (vitamin D2) 1,250 See Rx Instructions .Route 02/12/23 03/26/23 Rx mcg (50,000 unit) capsule .COMPLEX #7 caps sodium,potassium,mag sulfates 17.5 See Rx Instructions PO .COMPLEX 03/08/23 03/26/23 Rx gram-3.13 gram-1.6 gram oral soln #354 mL (Suprep Bowel Prep Kit) Allergies Allergy/AdvReac Type Severity Reaction Status Date / Time tobramycin Allergy Unknown Eye Verified 04/05/23 06:44 irritation topiramate AdvReac Severe memory fog Verified 04/05/23 06:44 Vital Signs Vital Signs - 24 hr 04/05/23 06:45 Temperature 97 F L Pulse Rate 83 Respiratory Rate 18 Blood Pressure 137/75 Pulse Oximetry 100 Oxygen Delivery Room Air Exam
--- NOTE | 2023-04-05 07:27 | WPDANESEPPF ---
Anes - Initial Pre Proc Eval Procedure: Operation Date: 04/05/23 08:00 Proposed Procedures p Screening Colonoscopy - Malcom Barrera MD Date/Time: 04/05/23 07:27 Surgeon: Malcom Barrera MD Pre Op Diagnosis: neoplasm screening Patient Data Age: 62 Gender: F Height: 1.68 m Weight: 104.4 kg Last Vital Signs Temp 97 F L 04/05/23 06:45 Pulse 83 04/05/23 06:45 Resp 18 04/05/23 06:45 BP 137/75 04/05/23 06:45 Pulse Ox 100 04/05/23 06:45 O2 Del Method Room Air 04/05/23 06:45 Allergies Allergy/AdvReac Type Severity Reaction Status Date / Time tobramycin Allergy Unknown Eye Verified 04/05/23 06:44 irritation topiramate AdvReac Severe memory fog Verified 04/05/23 06:44 Home Medications Medication Instructions Recorded Confirmed Type nitroglycerin 0.4 mg sublingual 0.4 mg sublingual Q5M PRN chest 09/15/21 03/26/23 Rx tablet pain #20 tabs minocycline 100 mg tablet 100 mg PO DAILY PRN adult acne 10/04/21 03/26/23 History oxymetazoline 0.05 % nasal spray 2 spray intranasal Q12H PRN Nasal 10/04/21 03/26/23 History (Afrin (oxymetazoline)) Congestion atorvastatin 20 mg tablet (Lipitor) 20 mg PO DAILY #30 tabs 10/05/21 03/26/23 Rx aspirin 81 mg tablet 81 mg PO DAILY 05/01/22 03/26/23 History diclofenac sodium 75 mg 75 ea PO BID 07/18/22 03/26/23 History tablet,delayed release pantoprazole 40 mg tablet,delayed See Rx Instructions .Route 01/16/23 03/26/23 Rx release .COMPLEX #90 tabs metformin 500 mg tablet 500 mg PO BID #180 tabs 01/17/23 03/26/23 Rx ergocalciferol (vitamin D2) 1,250 See Rx Instructions .Route 02/12/23 03/26/23 Rx mcg (50,000 unit) capsule .COMPLEX #7 caps sodium,potassium,mag sulfates 17.5 See Rx Instructions PO .COMPLEX 03/08/23 03/26/23 Rx gram-3.13 gram-1.6 gram oral soln #354 mL (Suprep Bowel Prep Kit) Laboratory Tests 04/05/23 06:56 POC Capillary Glucose 101 mg/dl (65-105) Patient hx anesthesia problems: none Family hx anesthesia problems: none Results Review: All pre-operative results and documents have been reviewed as part of the pre-operative evaluation. [facility] Past Medical History Medical History Chest pain Chest wall pain Conjunctivitis Hiatal hernia with gastroesophageal reflux disease and esophagitis Hx of pancreatitis after cholecystectomy for retained stones Recurrent dislocation of shoulder Renal cyst Surgical History Surgical History History of cholecystectomy Family History Family History Sibling Diabetes mellitus Mother Hypertension Family history of elevated blood lipids Family history of cardiovascular disease Cerebrovascular accident Father Patient's father is Family history of lung cancer Family history of lymphoma Grandparent Cerebrovascular accident Social History Social History (Updated 02/13/23 @ 12:22 by Heidi Candelario [facility]) Smoking status: Never smoker Second hand tobacco smoke exposure: Yes (as a child lived with a smoker, limited exposure as adult) Additional smoking assessment comments: exposed as a child Alcohol intake: never Substance use: never Lack of Transportation: No Lack of Food: Never True Current Housing: I Have Housing Concerned About Future Housing: No Difficulty Paying Gas/Electric Bills: No Difficulty Paying for Meds: No Currently Unemployed: No Education: Decline to Answer Difficulty w/ Childcare or Family Care: No Living arrangements: with family Additional living arrangements comments: lives with spouse Occupation/Education: occupation 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
[2023-04-05 08:11] VITALS: BP 107/64; PULSE 78; RESP 21; O2SAT 100
[2023-04-05 08:21] VITALS: BP 110/66; PULSE 71; RESP 21; O2SAT 100
[2023-04-05 08:30] VITALS: BP 112/66; PULSE 68; RESP 19; O2SAT 100
== END 2023-04-05 08:31 | disposition home or self-care (01) ==
PROVIDERS: PCP Family Medicine; Visit Provider Internal Medicine Gastroenterology
PROC: 0DJD8ZZ Inspection of Lower Intestinal Tract, Via Natural or Artificial Opening Endoscopic (ICD-10-PCS; CPT 45378; principal; 2023-04-05 08:00)
DX: Z12.11 Encounter for screening for malignant neoplasm of colon (principal); K57.30 Diverticulosis of large intestine without perforation or abscess without bleeding; Z79.84 Long term (current) use of oral hypoglycemic drugs; Z79.82 Long term (current) use of aspirin; E66.9 Obesity, unspecified; Z68.37 Body mass index [BMI] 37.0-37.9, adult
CPT/HCPCS: 45378; 82948; J2704; J7120

== ENCOUNTER → 2023-08-06 12:45 | Outpatient (CLI) | payer BC, SELFPAY ==
--- NOTE | ~2023-08-06 | MM_ITS ---
EXAMINATION: MM screening [facility] BI w silvana HISTORY: Screening mammogram TECHNIQUE: Craniocaudal and mediolateral oblique 3-D tomosynthesis images were obtained and synthetic 2-D images were generated. CAD analysis was submitted and interpreted. COMPARISON: 06/20/2022, 04/04/2021, 03/31/2020 BREAST PARENCHYMAL COMPOSITION: The breasts are almost entirely fatty. FINDINGS: No suspicious mass, calcification, or architectural distortion are identified in either cathi ast to suggest malignancy. There has been no suspicious interval change. IMPRESSION: 1. No mammographic evidence of malignancy. 2. Recommend routine screening mammography in one year. BI-RADS Category 1: Negative Reviewed, dictated and finalized at location A. OLATE FINISHER OPERATOR
== END ==
PROVIDERS: PCP Family Medicine
DX: Z12.31 Encounter for screening mammogram for malignant neoplasm of breast (principal)
CPT/HCPCS: 77063; 77067

== ENCOUNTER 2024-02-22 17:35 | Emergency (ER) | payer BC, SELFPAY ==
--- NOTE | ~2024-02-22 | XR_ITS ---
EXAMINATION: XR knee LT min 4V DATE: 02/22/2024 18:45 INDICATION: Left knee pain post fall TECHNIQUE: Anteroposterior, 2 oblique and crosstable lateral views of the left knee were obtained COMPARISON: 07/10/2022 FINDINGS: Alignment is normal. No fracture. Moderate joint space narrowing and small marginal osteophytes in t he patellofemoral compartment. Joint spaces in the medial and lateral compartment appear relatively p reserved on nonweightbearing imaging with tiny marginal ossified severity medial compartment and smal l marginal osteophytes at the lateral compartment. No joint effusion/layering lipohemarthrosis. Soft tissues are unremarkable. IMPRESSION: 1. No left knee joint effusion or acute osseous or mild to. 2. Tricompartmental osteoarthritis at the left knee, moderate severity at the patellofemoral compartm ent and mild at the medial and lateral compartments. Reviewed, dictated and finalized at location A. IMPRESSION: 1. No left knee joint effusion or acute osseous or mild to. 2. Tricompartmental osteoarthritis at the left knee, moderate severity at the p atellofemoral compartment and mild at the medial and lateral compartments.
--- NOTE | ~2024-02-22 | XR_ITS ---
EXAMINATION: XR ribs LT 2V DATE: 02/22/2024 17:53 INDICATION: Left rib pain post fall TECHNIQUE: 3 views of the left ribs were obtained. COMPARISON: Chest radiograph dated 07/12/2022 FINDINGS: No rib fractures identified. Left lung is clear with no focal airspace opacities, pulmonary edema, pl eural effusion or pneumothorax. Heart size is normal. IMPRESSION: 1. No rib fracture or acute cardiopulmonary disease in the left hemithorax. Reviewed, dictated and finalized at location A.
--- NOTE | ~2024-02-22 | XR_ITS ---
EXAMINATION: XR shoulder RT min 2V DATE: 02/22/2024 18:46 INDICATION: Right shoulder pain post fall TECHNIQUE: AP internally and externally rotated, AP oblique externally rotated and transscapular Y vi ews of the right shoulder were obtained. COMPARISON: 11/12/2023 FINDINGS: Normal alignment. No fracture.Mild right glenohumeral and acromioclavicular osteoarthritis. Visualiz ed portion of the lungs are clear. Soft tissues are unremarkable. IMPRESSION: Mild right glenohumeral and acromioclavicular osteoarthritis. No acute osseous abnormality. Reviewed, dictated and finalized at location A.
--- NOTE | ~2024-02-22 | XR_ITS ---
EXAMINATION: XR shoulder LT min 2V DATE: 02/22/2024 18:45 INDICATION: Left shoulder pain 2 days post fall TECHNIQUE: AP internally and externally rotated, AP oblique externally rotated and transscapular Y vi ews of the left shoulder were obtained. COMPARISON: 11/12/2023 FINDINGS: Normal alignment. No fracture. Glenohumeral joint is normal. Moderate acromioclavicular osteoarthrit is with small inferiorly directed osteophytes. Soft tissues are unremarkable. Visualized portion of t he lungs are clear. IMPRESSION: Moderate left acromioclavicular osteoarthritis. No acute osseous abnormality. Reviewed, dictated and finalized at location A.
[2024-02-22 17:39] VITALS: BP 148/87; PULSE 78; RESP 16; TEMP 36.3; O2SAT 100
--- NOTE | 2024-02-22 19:12 | ED.FALL ---
HPI - Fall General Chief Complaint: Fall Stated Complaint: fall Time Seen by Provider: 02/22/24 17:47 History of Present Illness HPI Narrative: 63-year-old female presents emergency department for left rib pain, left knee pain and bilateral shoulder pain after a mechanical fall that occurred 2 nights ago. Patient states she misstepped on her front porch and fell to the ground injuring these regions. She denied head or lose consciousness. She denies neck pain or back pain, other injuries acquired. She is not anticoagulated. Related Data Home Medications Medication Instructions Recorded Confirmed minocycline 100 mg tablet 100 mg PO DAILY PRN adult acne 10/04/21 12/10/23 oxymetazoline 0.05 % nasal spray 2 spray intranasal Q12H PRN Nasal 10/04/21 12/10/23 (Afrin (oxymetazoline)) Congestion aspirin 81 mg tablet 81 mg PO DAILY 05/01/22 12/10/23 Allergies Allergy/AdvReac Type Severity Reaction Status Date / Time tobramycin Allergy Unknown Eye Verified 12/10/23 13:27 irritation topiramate AdvReac Severe memory fog Verified 12/10/23 13:27 Review of Systems Review of Systems: All systems reviewed & are unremarkable except as noted in HPI and below PMFSH Past Medical History Medical History Chest pain Chest wall pain Conjunctivitis Hiatal hernia with gastroesophageal reflux disease and esophagitis Hx of pancreatitis after cholecystectomy for retained stones Recurrent dislocation of shoulder Renal cyst Surgical History Surgical History History of cholecystectomy Family History Family History Sibling Diabetes mellitus Mother Hypertension Family history of elevated blood lipids Family history of cardiovascular disease Cerebrovascular accident Father Patient's father is Family history of lung cancer Family history of lymphoma Grandparent Cerebrovascular accident Social History Social History Smoking status: Never smoker Second hand tobacco smoke exposure: Yes (as a child lived with a smoker, limited exposure as adult) Additional smoking assessment comments: exposed as a child Alcohol intake: never Substance use: never Substance use type: does not use Do You Feel Safe in your Home?: Yes Lack of Transportation: No Lack of Food: Never True Current Housing: I Have Housing Concerned About Future Housing: No Difficulty Paying Gas/Electric Bills: No Difficulty Paying for Meds: No Currently Unemployed: No Education: Bachelor's Degree Difficulty w/ Childcare or Family Care: No Living arrangements: with family Additional living arrangements comments: lives with spouse Occupation/Education: occupation 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 HEAD: Normocephalic, atraumatic. EYES: PERRLA and EOMI. ENT: Nares clear, no rhinorrhea or epistaxis. Mucous membranes moist. NECK: no midline cervical spinous tenderness, step-offs or deformities BACK: no midline thoracolumbar spinous tenderness, step-offs or deformities CHEST: Clear to auscultation. No respiratory distress. tenderness to the left anterior lateral chest wall with no ecchymosis, crepitus, step-offs or deformities HEART: Regular rate and rhythm. No murmur heard. Normal peripheral pulses. ABDOMEN: Soft, nontender, nondistended, normal active bowel sounds. EXTREMITIES: minimal tenderness to bilateral shoulders on palpation, minimal tenderness to the left knee with overlying abrasion. Full range of motion of all extremities. Radial and DP pulses 2+. Sensation intact throughout. No obvious d
== END 2024-02-22 19:30 | disposition home or self-care (01) ==
PROVIDERS: Emergency Provider Physician Assistant; PCP Family Medicine
DX: S20.212A Contusion of left front wall of thorax, initial encounter (principal); M25.511 Pain in right shoulder; S80.02XA Contusion of left knee, initial encounter; W17.89XA Other fall from one level to another, initial encounter
CPT/HCPCS: 71100; 73030; 73564; 99284

== ENCOUNTER 2024-07-17 15:13 | Emergency (ER) | payer BC, SELFPAY ==
[2024-07-17 15:22] VITALS: BP 114/84; PULSE 116; RESP 16; TEMP 36.4; O2SAT 100
--- NOTE | 2024-07-17 15:38 | ED.URI ---
HPI - URI/Sore Throat General Chief Complaint: Upper Respiratory Infection Stated Complaint: Sinus Infection Symptoms Time Seen by Provider: 07/17/24 15:29 Source: patient and RN notes reviewed Mode of arrival: ambulatory Limitations: no limitations History of Present Illness HPI Narrative: Patient presents today complaining of 3 week history of nasal congestion. Initially she had a cough and sneezing as well but this has since resolved. She has had headache for the last couple of days as well. She has been using Afrin 2 to 3 times a day for the past 2 weeks which she states is the only thing helping with her congestion. She has also tried Mucinex. Denies fever, shortness of breath. Related Data Home Medications ?Medication ?Instructions ?Recorded ?Confirmed ?Last Taken ?Type minocycline 100 mg tablet 100 mg PO DAILY PRN adult acne 10/04/21 12/10/23 06/26/21 History oxymetazoline 0.05 % nasal spray 2 spray intranasal Q12H PRN Nasal 10/04/21 12/10/23 10/05/21 06:00 History (Afrin (oxymetazoline)) Congestion aspirin 81 mg tablet 81 mg PO DAILY 05/01/22 12/10/23 Unknown History Allergies Allergy/AdvReac Type Severity Reaction Status Date / Time topiramate AdvReac Intermediate memory fog Verified 07/17/24 15:20 tobramycin AdvReac Mild Eye Verified 07/17/24 15:20 irritation Review of Systems Review of Systems: CONSTITUTIONAL: Denies body aches, fever, chills, or sweats. EYES: Denies visual changes, redness, or discharge. ENT: Denies rhinorrhea, sore throat, or otalgia.+ congestion CARDIOVASCULAR: Denies chest pain, palpitations, or edema. RESPIRATORY: Denies cough or dyspnea. GASTROINTESTINAL: Denies abdominal pain, nausea, vomiting, or diarrhea. GENITOURINARY: Denies dysuria or hematuria. SKIN: Denies rash, itching, or wounds. MUSCULOSKELETAL: Denies back pain, joint pain, or myalgia. NEUROLOGIC: Denies numbness, tingling, or weakness.+ headache PSYCH: Denies depression or anxiety. PMFSH Past Medical History Medical History Hx of pancreatitis after cholecystectomy for retained stones Recurrent dislocation of shoulder Chest wall pain Chest pain Conjunctivitis Hiatal hernia with gastroesophageal reflux disease and esophagitis Renal cyst Surgical History Surgical History History of cholecystectomy Family History Family History Sibling Diabetes mellitus Mother Hypertension Family history of elevated blood lipids Family history of cardiovascular disease Cerebrovascular accident Father Patient's father is Family history of lung cancer Family history of lymphoma Grandparent Cerebrovascular accident Social History Social History Smoking status: Never smoker Second hand tobacco smoke exposure: Yes (as a child lived with a smoker, limited exposure as adult) Additional smoking assessment comments: exposed as a child Alcohol intake: never Substance use: never Substance use type: does not use Do You Feel Safe in your Home?: Yes Lack of Transportation: No Lack of Food: Never True Current Housing: I Have Housing Concerned About Future Housing: No Difficulty Paying Gas/Electric Bills: No Difficulty Paying for Meds: No Currently Unemployed: No Education: Bachelor's Degree Difficulty w/ Childcare or Family Care: No Living arrangements: with family Additional living arrangements comments: lives with spouse Occupation/Education: occupation Additional occupation/education comments: [employer] Gender identity (if verbalized by the patient): Female Spiritual care concerns: No Comments At time of signature, I have reviewed and agree with nursing past medical, surgical, social and family history unless otherwise noted. Please see nursing chart for further information. There is no relevant family history pertinent to the presenting complaint Exam Narrative: GENERAL: Mildly ill-appearing, well-nourished, and in no acute distress. HEAD: Normocephalic, atraumatic. EYES: EOMI. No redness or drainage. Conjunctivae normal. ENT: Mucous membranes pink and moist. Nares congested. No rhinorrhea. TMs normal bilaterally. Throat normal. Uvula midline. NECK: Normal AROM. Supple. No lymphadenopathy. CHEST: No respiratory distress. Clear to auscultation. HEART: Regular rate and rhythm. No murmur appreciated. EXTREMITIES: Normal range of motion. No edema. SKIN: Warm, dry, no rash. Capillary refill normal. Normal skin turgor. NEURO: No focal deficits. Alert and oriented x3. Gait steady. PSYCH: Normal affect. No signs of depression or anxiety. Course Course Level of Care: Express Care Visit Vital Signs Vital signs: Vital Signs Temperature 97.6 F 07/17/24 15:22 Pulse Rate 116 H 07/17/24 15:22 Respiratory Rate 16 07/17/24 15:22 Blood Pressure 114/84 07/17/24 15:22 Pulse Oximetry 100 07/17/24 15:22 Temperature 97.6 F 07/17/24 15:22 Pulse Rate 116 H 07/17/24 15:22 Respiratory Rate 16 07/17/24 15:22 Blood Pressure 114/84 07/17/24 15:22 Pulse Oximetry 100 07/17/24 15:22 Reviewed MDM - URI/Sore Throat MDM Narrative Medical decision making narrative: Patient will be started on a course of Augmentin for sinusitis. She has also been educated regarding Rhinitis Medicamentosa. Agreed to stop the Afrin. Will start Flonase instead. Anticipatory guidance given. Differential Diagnosis Differential diagnosis: Likely upper respiratory infection, otitis media, sinusitis and viral infection Critical Care Time Critical Care Time Critical Care Time: No Discharge Plan Discharge Clinical Impression: Rhinitis medicamentosa Sinusitis Qualifiers: Sinusitis location: unspecified location Chronicity: acute Recurrence: not specified as recurrent Qualified Code(s): J01.90 - Acute sinusitis, unspecified Patient Disposition: Home, Self-Care Condition: Stable Instructions: Antibiotic Form, Sinusitis (ED) Additional Instructions: Please take the Augmentin and use the Flonase as directed. Stop using the Afrin as soon as possible, and as discussed, it may take up to 2 weeks for it to get out of your system and for your nasal congestion to resolve. Your blood pressure was elevated above 120/80 today at Urgent Care. This puts you above the threshold for follow up. Please schedule a followup visit with your personal physician as soon as possible, for further evaluation and treatment. Even blood pressure exceeding 120/80 may indicate pre-hypertension. Patient Language: Lebanese Prescriptions: New fluticasone propionate [Flonase Allergy Relief] 50 mcg/actuation spray,suspension 2 spray intranasal DAILY PRN (Reason: nasal congestion) Qty: 15.8 0RF Rx Instructions: administer into each nostril amoxicillin-pot clavulanate 875-125 mg tablet 1 tablet PO Q12H 7 Days Qty: 14 0RF No Action nitroglycerin 0.4 mg tablet, sublingual 0.4 mg sublingual Q5M PRN (Reason: chest pain) Qty: 20 1RF Rx Instructions: do not exceed 3 doses per episode aspirin 81 mg tablet 81 mg PO DAILY minocycline 100 mg Tablet 100 mg PO DAILY PRN (Reason: adult acne) oxymetazoline [Afrin (oxymetazoline)] 0.05 % Celestine,Non-Aerosol 2 spray INTRANASAL Q12H PRN (Reason: Nasal Congestion) atorvastatin [Lipitor] 20 mg tablet 20 mg PO DAILY Qty: 30 11RF diclofenac sodium 75 mg tablet,delayed release (DR/EC) 75 mg PO BID Qty: 180 3RF celecoxib 200 mg capsule See Rx Instructions .ROUTE .COMPLEX Qty: 30 1RF Dose Instruction: TAKE 1 CAPSULE BY MOUTH DAILY Rx Instructions: TAKE 1 CAPSULE BY MOUTH DAILY pantoprazole 40 mg tablet,delayed release (DR/EC) See Rx Instructions .ROUTE .COMPLEX Qty: 90 1RF Dose Instruction: TAKE 1 TABLET BY MOUTH EVERY MORNING Rx Instructions: TAKE 1 TABLET BY MOUTH EVERY MORNING ergocalciferol (vitamin D2) 1,250 mcg (50,000 unit) capsule See Rx Instructions .ROUTE .COMPLEX Qty: 7 2RF Dose Instruction: TAKE 1 CAPSULE BY MOUTH EVERY 2 WEEKS Rx Instructions: TAKE 1 CAPSULE BY MOUTH EVERY 2 WEEKS metformin 500 mg tablet 1,000 mg PO BID Qty: 120 3RF Zepbound 15 mg/0.5 mL pen injector 15 mg subcut WEEKLY Qty: 2 4RF Zepbound 12.5 mg/0.5 mL pen injector 12.5 mg subcut WEEKLY Qty: 2 4RF Follow-up/Referrals: Bev Navarro MD [Primary Care Provider] - Time of Disposition: 15:45
== END 2024-07-17 15:46 | disposition home or self-care (01) ==
PROVIDERS: Emergency Provider Nurse Practitioner; PCP Family Medicine
DX: J01.90 Acute sinusitis, unspecified (principal); J31.0 Chronic rhinitis; Z79.82 Long term (current) use of aspirin
CPT/HCPCS: 99213; G0463

== ENCOUNTER 2024-10-15 14:44 | Outpatient (CLI) | payer BC, SELFPAY ==
--- NOTE | ~2024-10-15 | MM_ITS ---
EXAMINATION: MM screening [facility] w [facility] HISTORY: Screening TECHNIQUE: Craniocaudal and mediolateral oblique 3-D tomosynthesis images were obtained and synthetic 2-D images were generated. CAD analysis was submitted and interpreted. COMPARISON: Comparison to multiple prior studies sequentially, with oldest reviewed study dated 01/2020. BREAST PARENCHYMAL COMPOSITION: Not Dense: The breasts are almost entirely fatty. FINDINGS: There is no evidence of suspicious mass, calcification, or architectural distortion to sugg est malignancy in either breast. There has been no suspicious interval change. IMPRESSION: 1. No mammographic evidence of malignancy. 2. Recommend routine screening mammography in one year. BI-RADS Category 1: Negative Reviewed, dictated and finalized at location A.
== END 2024-10-15 14:45 | disposition home or self-care (01) ==
LOC: MICIMG 14:45
PROVIDERS: PCP Family Medicine
DX: Z12.31 Encounter for screening mammogram for malignant neoplasm of breast (principal)
CPT/HCPCS: 77063; 77067

== ENCOUNTER 2024-12-07 09:39 | Outpatient (CLI) | payer BC, SELFPAY ==
--- OUTSIDE RECORDS SUMMARY | 2024-12-07 10:16 | XMS_ITS | Referral Summary ---
Author Organization [facility] Address [address] [place] [address] Care Team Providers Care Hairspring Setter Name Role Phone Bev Navarro MD Primary Care Provider + Encounters Date Type Department Care Team Description 10/16/2024 Results Follow-Up [facility] [address] Malcom Mahoney MD SCAN - RADIOLOGY/IMAGING 10/15/2024 Orders Only [address] [address] Malcom Mahoney MD from Last 3 Months Allergies Active Allergy Reactions Criticality Noted Date Comments Tobramycin Other (See comments),Urticaria Medium 09/19/2020 Other reaction(s): Other Medications ergocalciferol (VITAMIN D) 50,000 unit capsule TK 1 C PO Q WEEK 02/14/[address] (PROTONIX) 40 mg EC tablet TK 1 T PO QAM 01/09/2020 Active minocycline (DYNACIN) 100 mg tablet Take 60 mg by mouth as needed 09/23/2020 Active aspirin 81 mg enteric coated tablet Take 1 tablet (81 mg total) by mouth daily Active atorvastatin (LIPITOR) 20 mg tablet TAKE 1 TABLET(20 MG) BY MOUTH DAILY 90 tablet 10/28/2024 Active Active Problems Problem Noted Date Diagnosed Date Family history of abdominal aortic aneurysm 12/2021 BMI 34.0-34.9,adult 04/30/2022 Epilepsy 03/10/2012 Overview (09/26/2016): Epilepsy Migraine 03/10/2012 Overview (09/28/2016): Migraine 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 Overview (09/28/2016): Reflux gastritis Abnormal stress echo Chest pain Social History Tobacco Use Types Packs/Day Years Used Date Smoking Tobacco: Never Cigarettes Smokeless Tobacco: Never Tobacco Cessation:Counseling Given: Not Answered Alcohol Use Standard Drinks/Week Comments Yes 0 (1 standard drink = 0.6 oz pur e alcohol) Comments No Sex and Gender Information Value Date Recorded Sex Assigned at Not on file Legal Sex Female 2:08 AM INFORMATICS EDUCATOR Gender Identity Not on file Sexual Orientation Not on file Last Filed Vital Signs Vital Sign Reading Time Taken Comments Blood Pressure 114/76 08/26/2023 11:47 AM INFORMATICS EDUCATOR Pulse 81 08/26/2023 11:47 AM INFORMATICS EDUCATOR Temperature 36.8 C (98.3 F) 11/14/2018 3:09 PM CDT Respiratory Rate 16 11/14/2018 10:15 PM CDT Oxygen Saturation 97% 08/26/2023 11:47 AM INFORMATICS EDUCATOR Inhaled Oxygen Concentration - - Weight 107.5 kg (237 lb) 08/26/2023 11:47 AM INFORMATICS EDUCATOR Height 167.6 cm (5' 6) 08/26/2023 11:47 AM INFORMATICS EDUCATOR Body Mass Index 38.25 08/26/2023 11:47 AM INFORMATICS EDUCATOR Plan of Treatment Not on file Procedures Procedure Name Priority Date/Time Associated Diagnosis Comments SCAN - RADIOLOGY/IMAGING 10/15/2024 3:52 PM CDT SCREENING MAMMOGRAM 2D BILATERAL Schedule Routine, Read Routine (OP Routine) 04/04/2021 PAP ONLY Routine 03/31/2021 12:17 PM CDT Screening for cervical cancer from Last 3 Months or Most Recently Relevant to Health Maintenance Results * SCAN - RADIOLOGY/IMAGING (10/15/2024 3:52 PM CDT) Anatomical Region Laterality Modality Other us Malcom Mahoney MD Final Result * Screening Mammogram 2D Bilateral (04/04/2021) Anatomical Region Laterality Modality Breast Bilateral Mammography Malcom Mahoney MD IMG MAMMO PROCEDURES Final Res ult * Pap Only (03/31/2021 12:17 PM CDT) Clinical indication Comment [facility] - 01 Comment:NEGATIVE FOR INTRAEP ITHELIAL LESION OR MALIGNANCY. Specimen adequacy: Comment [facility] - 01 Comment: Satisfactory for evaluation. Endocervical and/or squamous metaplastic cells (endocervical component) are present. Clinician provided ICD10 Comment [facility] - 01 Comment:Z12.4 Performed by Comment [facility] - 01 Comment:Alon Lopez, [facility] otechnologist (ASCP) . . [facility] - 01 Note: Comment [facility] - 01 Comment: The Pap smear is a screening test designed to aid in the detection of premalignant and malignant conditions of the uterine cervix. It is not a diagnostic procedure and should not be used as the sole means of detecting cervical cancer. Both false-positive and false-negative reports do occur. Test methodology Comment [facility] - 01 Comment: This liquid based ThinPrep(R) pap test was screened with the use of an image guided system. Swab 03/31/2021 12:1 7 PM CDT 04/03/2021 Narrative [facility] - 04/04/2021 2:09 PM CDT Performed at: 01 - [address] [id number] Dry Cell Sealer: Carolyn Brito MD, Phone: [phone] Specimen Comment: No. of containers..01 ThinPrep Vial us Malcom Mahoney MD LAB CYTOLOGY ORDERABLES Final Result [facility] - 01 from Last 3 Months or Most Recently Relevant to Health Maintenance Insurance [facility] Care Teams Hairspring Setter Relationship Specialty Start Date End Date Bev Navarro MD PCP - General Family Medicine 04/30/22
--- OUTSIDE RECORDS SUMMARY | 2024-12-07 10:16 | XMS_ITS | Encounter Summary ---
Author Organization [facility] Address [address] [place] [address] Care Team Providers Care Commercial Real Estate Underwriter Name Role Phone Bev Navarro MD Primary Care Provider + Encounter Details Date Type Department Care Team (Late st Contact Info) Description 10/16/2024 Results Follow-Up [facility] [address] [facility] [address] [place] [phone] Malcom Mahoney MD [address] [address] SCAN - RADIOLOGY/IMAGING Social History Tobacco Use Types Packs/Day Years Used Date Smoking Tobacco: Never Cigarettes Smokeless Tobacco: Never Alcohol Use Standard Drinks/Week Comments Yes 0 (1 standard drink = 0.6 oz pur e alcohol) Comments No Sex and Gender Information Value Date Recorded Sex Assigned at Not on file Legal Sex Female 2:08 AM FEED MILLER Gender Identity Not on file Sexual Orientation Not on file documented as of this encounter Miscellaneous Notes * Result Encounter Note - Malcom Mahoney MD - 10/16/2024 7:14 AM CDT Hannah Your mammogram results are normal. I do agree with their recommendations and I think the results should be reassuring. Please contact the office if you have any questions and message me back to let me know that she got this and that the my chart system is working. Dr. Mahoney documented in this encounter Plan of Treatment Not on file documented as of this encounter Visit Diagnoses Not on filedocumented in this encounter Care Teams Commercial Real Estate Underwriter Relationship Specialty Start Date End Date Bev Navarro MD PCP - General Family Medicine 04/30/22 documented as of this encounter
--- OUTSIDE RECORDS SUMMARY | 2024-12-07 10:16 | XMS_ITS | Clinical Summary ---
Author Organization [facility] Address [address] [place] [address] Care Team Providers Care Receptionist Scheduler Name Role Phone Bev Navarro MD Primary Care Provider + Allergies Active Allergy Reactions Criticality Noted Date [...] Reflux gastritis Abnormal stress echo Chest pain Encounters Date Type Department Care Team Description 10/16/2024 Results Follow-Up [facility] [address] [facility] [address] [address] Malcom Mahoney MD SCAN - RADIOLOGY/IMAGING 10/15/2024 Orders Only [facility] [address] [facility] [address] [place] [phone] Malcom Mahoney MD from Last 3 Months Surgical History Surgery Date Site/Laterality Comments CHOLECYSTECTOMY LASIK 1996 estimate ABDOMINAL SURGERY 2014 gallbladder Medical History Medical History Date Comments Chest pain Fatigue Abnormal stress echo Sleep apnea Chronic kidney disease GERD (gastroesophageal reflux disease) Family History Medical History Relation Name Comments Diabetes Brother 1 GN Diabetes mellit us; Cancer Brother 2 M Niebur No Known Problems Child No Known Problems Cousin No Known Problems Daughter Cancer Father MLN No Known Problems Father's Brother No Known Problems Father's Sister No Known Problems Maternal Grandfather No Known Problems Maternal Grandmother No Known Problems Maternal Great-Grandfather No Known Problems Maternal Great-Grandmother No Known Problems Maternal Half-Brother No Known Problems Maternal Half-Sister No Known Problems Maternal cousin Clotting disorder Mother EN Heart disease Mother EN Hypertension Mother EN Hypertension; Stroke Mother EN stroke; No Known Problems Mother's Brother No Known Problems Mother's Sister No Known Problems Nephew No Known Problems Niece No Known Problems Other No Known Problems Paternal Grandfather Obesity Paternal Grandmother I Niebur No Known Problems Paternal Great-Grandfather No Known Problems Paternal Great-Grandmother No Known Problems Paternal Half-Brother No Known Problems Paternal Half-Sister No Known Problems Paternal cousin No Known Problems Sister No Known Problems Son BRCA 1 Neg Hx BRCA 2 Neg Hx Benign Breast Condition Neg Hx Breast cancer Neg Hx Ductal Carcinoma In-Situ Neg Hx Endometrial cancer Neg Hx Ovarian cancer Neg Hx Thyroid cancer Neg Hx Usual Breast Hyperplasia Neg Hx Relation Name Status Comments Brother 1 GN Brother 2 M Niebur Child Cousin Daughter Father MLN Father's Brother Father's Sister Maternal Grandfather Maternal Grandmother Maternal Great-Grandfather Maternal Great-Grandmother Maternal Half-Brother Maternal Half-Sister Maternal cousin Mother EN (Age 87) Mother's Brother Mother's Sister Nephew Niece Other Paternal Grandfather Paternal Grandmother I Niebur Paternal Great-Grandfather Paternal Great-Grandmother Paternal Half-Brother Paternal Half-Sister Paternal cousin Sister Son Social History Tobacco Use Types Packs/Day Years Used Date Smoking Tobacco: Never Cigarettes Smokeless Tobacco: Never Tobacco Cessation:Counseling Given: Not Answered Alcohol Use Standard Drinks/Week Comments Yes 0 (1 standard drink = 0.6 oz pur e alcohol) Comments No Sex and Gender Information Value Date Recorded Sex Assigned at Not on file Legal Sex Female 2:08 AM POLITICAL CARTOONIST Gender Identity Not on file Sexual Orientation Not on file Obstetrics History Last Filed Vital Signs Vital Sign Reading Time Taken Comments Blood Pressure 114/76 08/26/2023 11:47 AM POLITICAL CARTOONIST Pulse 81 08/26/2023 11:47 AM POLITICAL CARTOONIST Temperature 36.8 C (98.3 F) 11/14/2018 3:09 PM CDT Respiratory Rate 16 11/14/2018 10:15 PM CDT Oxygen Saturation 97% 08/26/2023 11:47 AM POLITICAL CARTOONIST Inhaled Oxygen Concentration - - Weight 107.5 kg (237 lb) 08/26/2023 11:47 AM POLITICAL CARTOONIST Height 167.6 cm (5' 6) 08/26/2023 11:47 AM POLITICAL CARTOONIST Body Mass Index 38.25 08/26/2023 11:47 AM POLITICAL CARTOONIST Plan of Treatment Health Maintenance Due Date Last Done Comments Colon Cancer Screening-Colonoscopy 1960 Depression Screening 1960 Hepatitis C Screening 1960 Hepatitis B Screening 1980 Zoster Vaccine (2 of 2) 10/28/2021 09/02/2021 Cervical Cancer Screening 03/31/20222020, 03/30/2020, 04/23/2017, Additional history exists Regular Well Visit/Exam 18-64 03/31/2022 03/31/2021, 03/30/2020, 04/23/2017 Breast Cancer Screening-Mammogram 04/04/2022 04/04/2021, 02/18/2019, 02/11/2018, Additional history exists Covid-19 Vaccine ( season) 2024 04/19/2021, 08/26/2020, 08/06/2020 Influenza Vaccine (Season Ended) 2025 03/20/2021, 03/22/2020, 02/19/2020, Additional history exists DTaP/Tdap/Td Vaccine (2 - Td or Tdap) 10/10/2030 10/10/2020 Pneumococcal vaccine <65 Aged Out No longer eligible based on patient's age to complete this topic Procedures Procedure Name Priority Date/Time Associated Diagnosis [...] Anatomical Region Laterality Modality Breast Bilateral Mammography us Malcom Mahoney MD IMG MAMMO PROCEDURES Final [...] by Comment [facility] - 01 Comment:Alon Lopez, [facility] otechnologist (ASCP) . . [facility] - 01 [...] 2:09 PM CDT Performed at: 01 - [facility] [id number] Mig Tig Welder: Carolyn Brito MD, Phone: [phone] Specimen Comment: No. of containers..01 ThinPrep Vial us Malcom Mahoney MD LAB CYTOLOGY ORDERABLES Final Result [facility] - 01 from Last 3 Months or Most Recently Relevant to Health Maintenance Insurance [facility] Member Subscriber Plan / Payer (Ef fective 2008-Present) Name:Tano Cortez Relation to Subscriber:Spouse Name:SIN CORTEZ Date of :1962 Address: [address] [place] [address] Payer ID:[id number] (NAIC) Group ID:[id number] Type: [employer] Address: [address] [place] [id number] Care Teams Receptionist Scheduler Relationship Specialty Start Date End Date Bev Navarro MD PCP - General Family Medicine 04/30/22
--- OUTSIDE RECORDS SUMMARY | 2024-12-07 10:16 | XMS_ITS | Continuity of Care Document ---
Author Organization [facility] Address [address] [place] [address] Phone Care Team Providers Care Territory Account Manager Name Role Phone Scot Syed Unavailable Unavailable Procedures Procedure Date Office/outpatient Visit, Est Eye Exam Established Pt Office/outpatient Visit, Est Eye Exam Established Pt Eye Exam & Treatment Office/outpatient Visit, Est Eye Exam Established Pt Advance Directives Directive Yes / No Effective Date File Name No Information Encounters Encounter Description Practice Location Reason(s) For Visit Diagnoses Date Provider Providers Copied on Encounter Office/outpat ient Visit, Est [facility], [address], [place], [place], [id number], tel:[phone] [facility] No Information 5-201 0 Kunal Scot. [address], [place], [place], [facility], [place]. tel:[phone] [facility], [address], [place], [place], [id number], [place] tel:[phone] [facility] No Information 6-200 9 Billy Bina. [address], [place], [place], [facility], [place]. tel:[phone] Office/outpat ient Visit, [facility], [address] [place] [address] [address], [place], [place], [id number], [place] tel:[phone] [facility] No Information Dec-1 7-200 8 Krishnasamy Scot. [address] [facility] [address], [place], [facility], [place]. tel:[phone] [facility], [address] [place] [address] [address], [place], [place], [id number], [place] tel:[phone] SEC [facility] No Information Dec-0 9-200 8 Krishnasamy Scot. [address] [facility] [facility] [address], [place], [facility], [place]. tel:[phone] [facility], [address] [place] [address] [address], [place], [place], [id number], [place] tel:[phone] [facility] No Information May-1 4-200 8 Krishnasamy Scot. [address], [facility], [place]. tel:[phone] Office/outpat ient Visit, [facility], [address] [place] [address] [address], [place], [place], [id number], [place] tel:[phone] [facility] No Information Apr-3 0-200 8 Krishnasamy Scot. [address] [facility], [facility], [place]. tel:[phone] [facility], [address] [place] [address] [address], [place], [place], [id number], [place] tel:[phone] [facility] No Information Apr-2 1-200 8 Krishnasamy Scot. [address] [facility] [address], [place], [facility], [place]. tel:[phone] Family History Family Member Type Diagnosis Age At Onset No Information Payers Payer name Insurance type Covered alliance party ID Authoriza tiangelia(s) [facility] [place] [id number] [place] [id number] Social History Type Description Quantity Date Captured Comments Sex Female Smoking Status No Information Chief Complaint And Reason For Visit No Information Reason For Referral Reason For Referral No Information History Of Present Illness Encounter Date Complaint History Of Prese nt Illness No Information Functional Status Date Functional Assessmen t No Information Instructions Date Instruction Additional Infor mation No Information Assessments Type Assessment Date No Information Patient Care Teams Name Effective Dates (start - stop) Status Members No Information
--- OUTSIDE RECORDS SUMMARY | 2024-12-07 10:16 | XMS_ITS | Clinical Summary ---
Author Organization [facility] Address [address] [place] [address] Care Team Providers Care Vending Machine Filler Name Role Phone Piter Burnett MD Primary Care Provider [phone] Source Comments [facility],non-owned Affiliates and Associated Physician Practices is amultiple site organization consisting of ambulatory clinics and hospital sitesin [place], [place], [place] and [place]. This disclosure is being madepursuant to the Care Everywhere program and may not contain all information available regarding this patient. Last updated 18.[facility] Allergies Active Allergy Reactions Criticality Noted Date Comments Tobramycin Urticaria Medium 09/19/2020 Other reaction(s): Other Medications * Be aware that medications may not be up to date on this document. Alwaysverify current medications with the patient. vitamin D, ergocalciferol, (DRISDOL) 1.25 MG (09126 UT) capsule Take 50,000 Units by mouth every 7 days 08/18/2020 Active Minocycline HCl 100 MG Take 100 mg by mouth once daily 09/23/2020 Active pantoprazole EC (PROTONIX) 40 MG tablet Take 40 mg by mouth once daily Active carboxymethylce llulose sodium 0.5 % ophthalmic solution Instill 1 drop into both eyes 2 times daily as needed for Dry Eyes Active atorvastatin (Lipitor) 20 MG tablet Take 1 (one) tablet by mouth once daily 04/25/2022 Active aspirin EC (Ecotrin) 81 MG tablet Take 1 (one) tablet by mouth once daily Active nitroGLYCERIN (Nitrostat) 0.4 MG tablet 09/15/2021 Active Active Problems Problem Noted Date Diagnosed Date Chest pain 05/11/2022 Abnormal stress echo 05/11/2022 Family history of abdominal aortic aneurysm 12/2021 Disorder of shoulder 10/19/2020 Localized, primary osteoarthritis 10/19/2020 Osteoarthrosis 10/19/2020 Synovitis and tenosynovitis 10/19/2020 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 Overview (09/19/2020): Reflux gastritis Epileptic seizure 03/10/2012 Overview (09/19/2020): Epilepsy Unknown and unspecified causes of morbidity 02/22 Overview (09/19/2020): Migraine Immunizations Immunization Administration Dates Next Due INFLUENZA VACCINE 03/22/2020 Family History Medical History Relation Name Comments Cancer - Other Brother Cancer - Other Father Hypertension Mother Glaucoma Paternal Grandmother Relation Name Status Comments Brother Father Mother Paternal Grandmother Social History Tobacco Use Types Packs/Day Years Used Date Smoking Tobacco: Never Smokeless Tobacco: Never Alcohol Use Standard Drinks/Week Comments Not Currently 0 (1 standard drink = 0.6 oz pur e alcohol) Comments Unknown Sex and Gender Information Value Date Recorded Sex Assigned at Not on file 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 Gender Identity Not on file Sexual Orientation Not on file Plan of Treatment Health Maintenance Due Date Last Done Comments COLOGUARD (AGES 45-75) - COL ON CA SCREENING 1960 COLON MONITORING 1962 COLONOSCOPY - COLON CA SCREENING 1962 CT COLONOGRAPHY - COLON CA SCREENING 1962 Colorectal Cancer Screening 1962 FIT - COLON CA SCREENING 1962 FLEX SIG - COLON CA SCREENING 1962 MAMMOGRAM 1962 HIV SCREENING 1977 HEPATITIS C SCREENING 07/05/1980 DTAP/TDAP/TD VACCINES (1 - Tdap) 1981 PAP SMEAR 1983 PNEUMOCOCCAL VACCINE 50+ (1 of 1 - PCV) 2012 ZOSTER VACCINE (1 of 2) 2012 COVID-19 VACCINE (1 - 2023-2 5 season) 2024 DEPRESSION SCREENING 06/24/2024 Respiratory Syncytial Virus (RSV) Vaccine Pt: or over 60 yrs (1 - 1-dose 75+ series) 2037 INFLUENZA VACCINE Completed 03/16/2024, 03/22/2020 HEPATITIS B VACCINE Aged Out No longe r eligible based on patient's age to complete this topic HIB VACCINE Aged Out No longer eligi ble based on patient's age to complete this topic HPV VACCINE Aged Out No longer eligi ble based on patient's age to complete this topic MENINGOCOCCAL (Group B) VACCINE SHARED DECISION-MAKING Aged Out No longer eligible based on patient's age to complete this topic MENINGOCOCCAL GROUPS A/C/Y/W VACCINE Aged Out No longer eligible b ased on patient's age to complete this topic Insurance ANTH Care Teams Vending Machine Filler Relationship Specialty Start Date End Date Piter Burnett MD [address] [place] [address] PCP - General 08/29/20
== END 2024-12-07 09:40 | disposition home or self-care (01) ==
LOC: ANHAUDIO 09:39
PROVIDERS: PCP Family Medicine; Visit Provider Family Medicine
DX: Z01.10 Encounter for examination of ears and hearing without abnormal findings (principal); H93.13 Tinnitus, bilateral; H91.90 Unspecified hearing loss, unspecified ear
CPT/HCPCS: 92557; 92567

== ENCOUNTER 2025-01-22 10:03 | Outpatient (CLI) | payer BC, SELFPAY ==
--- NOTE | ~2025-01-22 | DEXA_ITS ---
Bone Density Report Name: TANO CARMONA Age: 64 Sex: Female Ethnicity: White Date of : 1960 Indication: postmenopausal; screening for osteoporosis; parental hip fracture; Referring Provider: JAZZY STEVE Study: Bone densitometry was performed. Exam Date: January 22, 2025 Accession number: [id number] Bone Density: Region BMD T-score Z-score Classification AP Spine(L1, L2, L3) 0.785 -2.1 -0.6 Osteopenia Femoral Neck (Left) 0.659 -1.7 -0.3 Osteopenia Total Hip (Left) 0.804 -1.1 -0.1 Osteopenia Femoral Neck (Right) 0.670 -1.6 -0.2 Osteopenia Total Hip (Right) 0.745 -1.6 -0.5 Osteopenia Total Hip Mean 0.774 -1.4 -0.3 Osteopenia World Health Organization criteria for BMD impression classify patients as: Normal (T-score at or above -1.0), Osteopenia (T-score between -1.0 and -2.5), or Osteoporosis (T-score at or below -2.5). 10-year Fracture Risk(1): Major Osteoporotic Fracture 18% Hip Fracture 1.1% Reported Risk Factors: [place] (), Neck BMD=0.659, BMI=24.5, parental fracture (1) FRAX(R) Version 3.08. Fracture probability calculated for an untreated patient. Fracture probability may be lower if the patient has received treatment. Clinical Information Provided by Patient: Parent has had a hip fracture Has used the following medications: Vitamin D Patient maximum height was 66 Menopause Age: 44 No regular weight bearing exercise Does not regularly consume dairy products Drinks caffeinated beverages Onset of menses at age 17 Number of children 1 Impression: The patient has low bone mass, based on the Total Spine T-score. The patient has an estimated ten-year risk of hip fracture of 1.1% and an estimated ten-year risk of major fracture of 18%, based on the WHO FRAX algorithm. The patient has risk factors, including: parental hip fracture. Discussion: BONE DENSITY IS LOW AT ONE OR MORE SKELETAL SITES. This patient's lowest T-score is low at one or more skeletal sites. It meets the World Health Organization's (WHO) criteria for ?low bone mass? (T-score between -1.0 and -2.5). The patient's 10-year risk of fracture as calculated by FRAX is less than the threshold where pharmacological therapy is recommended by the National Osteoporosis Foundation (NOF). However, all treatment decisions require clinical judgment and consideration of individual patient factors, including patient preferences, comorbidities, previous drug use, risk factors not captured in the FRAX model (e.g., frailty, falls, vitamin D deficiency, increased bone turnover, interval significant decline in bone density) and possible under or overestimation of fracture risk by FRAX. The patient should follow a healthful lifestyle (good nutrition with adequate calcium and vitamin D, and appropriate weight-bearing exercise). Follow-Up: Consider repeating this study in 2 to 3 years to reassess this patient's status, or sooner if there is some new clinical indication. Reported by: SIMONE on 01/22/2025 10:53:00 AM. Reviewed, dictated and finalized at location A.
--- OUTSIDE RECORDS SUMMARY | 2025-01-22 10:08 | XMS_ITS | Referral Summary ---
Author Organization [facility] Address [address] [place] [address] Care Team Providers Care Highway Engineering Technician Name Role Phone Bev Navarro MD Primary [...] on file Legal Sex Female 2:08 AM ACUTE SPECIALIST Gender Identity Not on file Sexual Orientation Not on file Last Filed Vital Signs Vital Sign Reading Time Taken Comments Blood Pressure 114/76 08/26/2023 11:47 AM ACUTE SPECIALIST Pulse 81 08/26/2023 11:47 AM ACUTE SPECIALIST Temperature 36.8 C (98.3 F) 11/14/2018 3:09 PM CDT Respiratory Rate 16 11/14/2018 10:15 PM CDT Oxygen Saturation 97% 08/26/2023 11:47 AM ACUTE SPECIALIST Inhaled Oxygen Concentration - - Weight 107.5 kg (237 lb) 08/26/2023 11:47 AM ACUTE SPECIALIST Height 167.6 cm (5' 6) 08/26/2023 11:47 AM ACUTE SPECIALIST Body Mass Index 38.25 08/26/2023 11:47 AM ACUTE SPECIALIST Plan of Treatment Not on file Procedures Procedure Name Priority Date/Time Associated Diagnosis Comments SCREENING MAMMOGRAM 2D BILATERAL Schedule Routine, Read Routine (OP Routine) 04/04/2021 PAP ONLY Routine 03/31/2021 12:17 PM CDT Screening for cervical cancer from Last 3 Months or Most Recently Relevant to Health Maintenance Results * Screening Mammogram 2D Bilateral (04/04/2021) Anatomical [...] by Comment [facility] - 01 Comment:Alon Lopez, [facility] otechnologist (ASCP) . . [facility] - 01 [...] - 04/04/2021 2:09 PM CDT Performed at: - [facility] [id number] Inspector Bicycle: Carolyn Brito MD, Phone: [phone] Specimen Comment: No. of containers..01 ThinPrep Vial Malcom Mahoney MD LAB CYTOLOGY ORDERABLES Final Result [facility] - 01 from Last 3 Months or Most Recently Relevant to Health Maintenance Insurance [facility] Care Teams Highway Engineering Technician Relationship Specialty Start Date End Date Bev Navarro MD PCP - General Family Medicine 04/30/22
--- OUTSIDE RECORDS SUMMARY | 2025-01-22 10:08 | XMS_ITS | Clinical Summary ---
Author Organization [facility] Address [address] [place] [address] Care Team Providers Care Digital Imager Name Role Phone Bev Navarro MD Primary [...] Reflux gastritis Abnormal stress echo Chest pain Surgical History Surgery Date Site/Laterality Comments CHOLECYSTECTOMY LASIK 1997 estimate ABDOMINAL SURGERY 2014 gallbladder Medical History [...] on file Legal Sex Female 2:08 AM POWER SUPERINTENDENT Gender Identity Not on file Sexual Orientation Not on file Obstetrics History Last Filed Vital Signs Vital Sign Reading Time Taken Comments Blood Pressure 114/76 08/26/2023 11:47 AM POWER SUPERINTENDENT Pulse 81 08/26/2023 11:47 AM POWER SUPERINTENDENT Temperature 36.8 C (98.3 F) 11/14/2018 3:09 PM CDT Respiratory Rate 16 11/14/2018 10:15 PM CDT Oxygen Saturation 97% 08/26/2023 11:47 AM POWER SUPERINTENDENT Inhaled Oxygen Concentration - - Weight 107.5 kg (237 lb) 08/26/2023 11:47 AM POWER SUPERINTENDENT Height 167.6 cm (5' 6) 08/26/2023 11:47 AM POWER SUPERINTENDENT Body Mass Index 38.25 08/26/2023 11:47 AM POWER SUPERINTENDENT Plan of Treatment Health Maintenance Due Date [...] season) 2024 04/19/2021, 08/26/2020, 08/06/2020 Influenza Vaccine (#1) 2025 , 03/22/2020, 02/19/2020, Additional history exists DTaP/Tdap/Td Vaccine [...] by Comment [facility] - 01 Comment:Alon Lopez, [facility] otechnologist (ASCP) . . [facility] - 01 [...] 2:09 PM CDT Performed at: 01 - [facility] [id number] Consulting Database Administrator: Carolyn Brito MD, Phone: [phone] Specimen Comment: No. of containers..01 ThinPrep Vial Malcom Mahoney MD LAB CYTOLOGY ORDERABLES Final Result [facility] - 01 from Last 3 Months or Most Recently Relevant to Health Maintenance Insurance [facility] Care Teams Digital Imager Relationship Specialty Start Date End Date Bev Navarro MD PCP - General Family Medicine 04/30/22
--- OUTSIDE RECORDS SUMMARY | 2025-01-22 10:08 | XMS_ITS | Clinical Summary ---
Author Organization [facility] Address [address] [facility] [place] [address] Care Team Providers Care Neurosurgical Physician Assistant Name Role Phone Piter Burnett MD Primary Care Provider [phone] Source Comments [facility],non-owned Affiliates and Associated Physician Practices is amultiple site organization consisting of ambulatory clinics and hospital sitesin [place], [place], [place] and [place]. This disclosure is being madepursuant to the Care Everywhere program and may not contain all information available regarding this patient. Last updated 18.[facility] Allergies Active Allergy Reactions Criticality Noted Date Comments Tobramycin Urticaria Medium 09/19/2020 Other reaction(s): Other Medications * Be aware that medications may not be up to date on this document. Alwaysverify current medications with the patient. 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 Gender Identity Not on file Sexual Orientation [...] 2023-2 5 season) 2024 DEPRESSION SCREENING 06/24/2024 INFLUENZA VACCINE (#1) 2025 , 03/22/2020 Respiratory Syncytial Virus (RSV) Vaccine Pt: or over 60 yrs (1 - 1-dose 75+ series) 2037 HEPATITIS B VACCINE Aged Out No longe [...] patient's age to complete this topic Insurance ANITHA Member Subscriber Plan / Payer (Ef fective 2008-Present) Name:Hannah Cortez Relation to Subscriber:Spouse Name:SIN CORTEZ Subscriber ID:Not on file Date of :1945 (Home) Address: [address] [place] [address] Payer ID:[id number] (NAIC) Group ID:[id number] Type:PPO Address: [facility] [id number] [place] [id number] Care Teams Neurosurgical Physician Assistant Relationship Specialty Start Date End Date Piter Burnett MD [address] [place] [address] PCP - General 08/29/20
== END 2025-01-22 10:04 | disposition home or self-care (01) ==
LOC: ANHIMG 10:06
PROVIDERS: PCP Family Medicine; Visit Provider Family Medicine
DX: M85.89 Other specified disorders of bone density and structure, multiple sites (principal); Z78.0 Asymptomatic menopausal state; Z13.820 Encounter for screening for osteoporosis
CPT/HCPCS: 77080